=== PATIENT | male | born 1970 | race Caucasian/White ===

== ENCOUNTER 2021-02-15 18:09 | Inpatient (IN) ==
[2021-02-15] MEDS ORDERED: ACETAMINOPHEN 1,000 MG/100 ML VIAL IV STA (19:21)
--- NOTE | 2021-02-15 19:29 | Emergency Department Note ---
History of Present Illness General Chief complaint: Abdominal Pain Stated complaint: STOMACH ACHE, FEVER Time Seen by Provider: 02/15/21 19:09 Source: patient Mode of arrival: ambulatory Limitations: no limitations History of Present Illness Provider complaint: Abdominal pain, fever Onset (ago): day(s) 1 Location: abdomen Radiation: extremity Severity: moderate Pain Consistency: + constant Maximum Pain Intensity: 8 Current Pain Intensity: 8 Quality: + constant Relieved By: + none Associated symptoms: + fever/chills and + loss of appetite; no nausea/vomiting and no shortness of breath Treatments prior to arrival: none This is a 50-year-old male presents the emergency department due to concern for abdominal pain and fever. Patient states he woke up in the middle the night yes terday morning and came to the emergency room for evaluation. States the pain at that time felt in the lower part of his chest/upper abdomen. He states there is some radiation of the pain into the right shoulder blade. He states he has been having similar intermittent and milder episodes over the last 6 months. States he was discharged home after having labs and several imaging studies performed. States the pain was not gone at the time of discharge and has persisted throughout the day. States this afternoon he developed fevers and chills. Due to concern for other evolving etiology, they return the emergency room. No other treatment prior to arrival. On review of EMR at bedside with the patient and family, he underwent labs which were reassuring, chest x-ray, ultrasound of the gallbladder, and CT angiography of the chest. Ultrasound of the gallbladder did show biliary sludge and perhaps trace cholecystic fluid on the over read by radiology this morning. CTA of the chest was otherwise unremarkable. Patient denies any recent sick contacts. No other recent dietary changes. No trauma or change in activity. No concern for exposure to coronavirus. Pt seen during a time of high acuity and national emergency pandemic while wearing PPE. Home Medications Medication Instructions Recorded Confirmed Type omeprazole 40 mg PO DAILY 14 Days #14 cap 02/14/21 02/15/21 Rx famotidine 20 mg PO DAILY PRN 02/15/21 02/15/21 History ibuprofen 600 mg PO Q8H PRN 02/15/21 02/15/21 History amoxicillin-pot clavulanate 1 tab PO BID 7 Days #14 tab 02/17/21 Rx [Augmentin] hydrocodone-acetaminophen 1 tab PO Q4H PRN #30 tab 02/17/21 Rx Allergies Allergy/AdvReac Type Severity Reaction Status Date / Time No Known Allergies Allergy Unknown Verified 02/15/21 19:46 Past Med/Surg History Medical History No acute medical problems Surgical History History of appendectomy No pertinent past surgical history Family History Other Congestive heart failure (CHF) Social History Smoking Status: Never smoker Second Hand Exposure: No; Hx Alcohol Use: Yes Alcohol type: beer, wine and hard liquor Hx Substance Use: No Preferred Language: Kyrgyz Communication Ability: Effective Alum Mixer Required: No Beliefs That Will Affect Care: None Current Living Situation: Spouse Feels Safe at Home: Yes Review of Systems See HPI for pertinent positives & negatives. and A total of 10 systems reviewed and were otherwise negative Physical Exam Vital Signs Vital Signs - 24 hr 02/15/21 18:17 Temperature 39.2 C H Temperature Source Oral Pulse Rate 95 H Respiratory Rate 18 Respiratory Effort / Characteristics Non-Labored Spontaneous Respiratory Depth Normal Respiratory Pattern Regular Blood Pressure 163/92 H Blood Pressure Mean 115 Blood Pressure Position Sitting Pulse Oximetry 94 Oxygen Delivery Method Room Air Sepsis Recent Fever Within 48 Hours No Sepsis New/Unexplained Change in Mental Status N/A Sepsis Action Taken by Nursing No Action Required GENERAL: alert, well appearing, well nourished, no distress, non-toxic, BMI>35 EYE EXAM: normal conjunctiva, PERRL and EOM's grossly intact OROPHARYNX: no exudate, no erythema, lips, buccal mucosa, and tongue normal and mucous membranes are moist NECK: supple, no nuchal rigidity, no adenopathy, non-tender LUNGS: Clear to auscultation. Normal chest wall mechanics, no w/r/r HEART: no murmurs, S1 normal and S2 normal ABDOMEN: abdomen soft, tenderness in the epigastric and right upper quadrant regions, normo-active bowel sounds, no masses, no rebound or guarding. BACK: Back is symmetrical on inspection and there is no deformity, no midline tenderness, no CVA tenderness. SKIN: no rashes and no bruising UPPER EXTREMITIES: upper extremities are grossly normal. FROM, nml pulses b/l. LOWER EXTREMITIES: No pitting edema. FROM, nml pulses b/l. NEURO EXAM: Normal sensorium, cranial nerves II-XII grossly intact, normal speech, no gross weakness of arms, no gross weakness of legs. Gross sensation intact. Course Administered Medications Discontinued Medications Amoxicillin/Clavulanate Potassium (Amoxicillin/Clavulanate 875 Mg Tab) 1 tab PO BIDM HUSSEIN Stop: 02/27/21 08:29 Last Admin: 02/17/21 09:07 Dose: 1 tab Documented by: [id number] Bupivacaine HCl (Bupivacaine 0.5 % 5 Mg/1 Ml Mpf 30ml Vial) Confirm Administered Dose 30 ml .ROUTE .STK-MED ONE Stop: 02/16/21 12:58 Last Admin: 02/16/21 15:38 Dose: 18 ml Documented by: [id number] Sodium Chloride (Nss 1000ml) 1,000 mls @ 250 mls/hr IV .Q4H [facility] Stop: 03/17/21 19:29 Last Admin: 02/15/21 23:59 Dose: Not Given Documented by: [id number] Infusion: 02/15/21 23:13 Dose: 0 mls/hr Documented by: [id number] Admin: 02/15/21 19:43 Dose: 250 mls/hr Documented by: [id number] Acetaminophen (Ofirmev) 1,000 mg in 100 mls @ 400 mls/hr IV NOW STA Stop: 02/15/21 19:35 Last Infusion: 02/15/21 19:57 Dose: 400 mls/hr Documented by: [id number] Admin: 02/15/21 19:42 Dose: 400 mls/hr Documented by: [id number] Piperacillin Sod/Tazobactam Sod (Zosyn) 4.5 gm in 120 mls @ 240 mls/hr IV NOW ONE Stop: 02/15/21 21:34 Last Infusion: 02/15/21 21:44 Dose: 240 mls/hr Documented by: [id number] Admin: 02/15/21 21:14 Dose: 240 mls/hr Documented by: [id number] Piperacillin Sod/Tazobactam (Sod 4.5 gm/ Dextrose) 120 mls @ 30 mls/hr IV Q8H [facility]; Protocol Stop: 02/26/21 01:59 Last Infusion: 02/17/21 07:39 Dose: 0 mls/hr Documented by: [id number] Admin: 02/17/21 02:16 Dose: 30 mls/hr Documented by: [id number] Infusion: 02/16/21 22:52 Dose: 0 mls/hr Documented by: [id number] Admin: 02/16/21 18:35 Dose: 30 mls/hr Documented by: [id number] Infusion: 02/16/21 13:40 Dose: 30 mls/hr Documented by: [id number] Admin: 02/16/21 09:40 Dose: 30 mls/hr Documented by: [id number] Infusion: 02/16/21 06:43 Dose: 30 mls/hr Documented by: [id number] Admin: 02/16/21 02:43 Dose: 30 mls/hr Documented by: [id number] Lactated Ringer's (Lr) 1,000 mls @ 125 mls/hr IV .Q8H [facility] Stop: 03/17/21 23:43 Last Admin: 02/16/21 19:01 Dose: Not Given Documented by: [id number] Infusion: 02/16/21 19:01 Dose: 0 mls/hr Documented by: [id number] Admin: 02/16/21 08:46 Dose: 125 mls/hr Documented by: [id number] Infusion: 02/16/21 08:46 Dose: 125 mls/hr Documented by: [id number] Admin: 02/16/21 00:54 Dose: 125 mls/hr Documented by: [id number] Sodium Chloride (Nss 1000ml) 1,000 mls @ 50 mls/hr IV .Q20H [facility]US[facility]IN Stop: 03/18/21 16:57 Last Infusion: 02/17/21 05:42 Dose: 50 mls/hr Documented by: [id number] Admin: 02/17/21 03:47 Dose: 100 mls/hr Documented by: [id number] Infusion: 02/17/21 03:36 Dose: 100 mls/hr Documented by: [id number] Admin: 02/16/21 17:36 Dose: 100 mls/hr Documented by: [id number] Indomethacin (Indomethacin 50 Mg Supp) Confirm Administered Dose 100 mg [place] .STK- MED ONE Stop: 02/16/21 12:58 Last Admin: 02/16/21 14:26 Dose: 100 mg Documented by: [id number] Insulin Aspart (Insulin Aspart 100 Units/Ml 3 Ml Pen) 0 units SC ACHS [facility] Stop: 03/18/21 07:29 Last Admin: 02/17/21 09:08 Dose: Not Given Documented by: [id number] Admin: 02/16/21 21:17 Dose: 1 units Documented by: [id number] Cosigned by: [id number] Admin: 02/16/21 18:33 Dose: 2 units Documented by: [id number] Cosigned by: [id number] Admin: 02/16/21 17:14 Dose: Not Given Documented by: [id number] Admin: 02/16/21 08:44 Dose: Not Given Documented by: [id number] Miscellaneous ( Floseal Hemostatic Matrix 10ml) 10 ml TOP ONCE ONE Stop: 02/16/21 15:11 Last Admin: 02/16/21 15:37 Dose: 10 ml Documented by: [id number] Pantoprazole Sodium (Pantoprazole 40 Mg Tab) 40 mg PO DAILY [facility] Stop: 03/18/21 08:59 Last Admin: 02/17/21 09:08 Dose: 40 mg Documented by: [id number] Admin: 02/16/21 09:40 Dose: 40 mg Documented by: [id number] Medical Decision Making Differential Diagnosis Differential diagnosis: Etiologies such as viral syndrome, otitis, pharyngitis, pneumonia, influenza, meningitis, urinary tract infection, sepsis, bacteremia, as well as others were entertained. Medical Records Attestation: I reviewed the patient's medical records. Home Medications Current Medication List: was personally reviewed by me Laboratory Data Attestation: I reviewed the patient's lab results. Result diagrams: 02/17/21 05:43 02/17/21 05:43 Lab Results 02/15/21 02/15/21 02/15/21 Range/Units 19:38 19:38 19:38 WBC 16.26 H (4.8-10.8) K/uL RBC 5.61 (4.7-6.1) M/uL Hgb 17.3 (14.0-18.0) g/dL Hct 49.7 (42-52) % MCV 88.6 (80-100) fL MCH 30.8 (25-34) pg MCHC 34.8 (32-36) g/dL RDW Std Deviation 43.3 (36.4-46.3) fL RDW Coeff of Lisandro 13.3 (11.5-14.5) % Plt Count 193 (130-400) K/uL MPV 10.5 H (7.4-10.4) fL Immature Gran % (Auto) 0.4 % Neut % (Auto) 75.2 % Lymph % (Auto) 11.5 % Cassia % (Auto) 11.9 % Eos % (Auto) 0.9 % Baso % (Auto) 0.1 % Neut # (Auto) 12.22 H (1.4-6.5) K/uL Lymph # (Auto) 1.87 (1.2-3.4) K/uL Cassia # (Auto) 1.94 H (0.11-0.59) K/uL Eos # (Auto) 0.14 (0-0.5) K/uL Baso # (Auto) 0.02 (0-0.2) K/uL Immature Gran # (Auto) 0.07 H (0.00-0.02) K/uL Sodium 135 L (136-145) mmol/L Potassium 3.7 (3.5-5.1) mmol/L Chloride 99 (98-107) mmol/L Carbon Dioxide 32 (21-32) mmol/L Anion Gap 4.0 (3-11) BUN 11 (7-18) mg/dl Creatinine 1.02 (0.6-1.4) mg/dl Est Cr Clr Drug Dosing 119.4 ml/min Est GFR ( Amer) 98.2 ml/min Est GFR (Non-Af Amer) 84.7 ml/min BUN/Creatinine Ratio 10.7 (10-20) Glucose 149 H (70-99) mg/dl Calcium 8.5 (8.5-10.1) mg/dl Magnesium 1.9 (1.8-2.4) mg/dl Total Bilirubin 3.2 H D (0.2-1) mg/dl AST 16 (15-37) U/L ALT 28 (12-78) U/L Alkaline Phosphatase 60 (45-117) U/L Troponin I < 0.015 (0-0.045) ng/ml Total Protein 7.4 (6.4-8.2) gm/dl Albumin 3.5 (3.4-5.0) gm/dl Globulin 3.9 (2.5-4.0) gm/dl Albumin/Globulin Ratio 0.9 (0.9-2) Lipase 74 (73-393) U/L Procalcitonin 0.11 (0-0.5) ng/ml Lyme Disease IgG Ab Negative (Negative) Lyme Disease IgM Ab Negative (Negative) COVID-19 Eval Order SARS-CoV-2 (PCR) (Negative) 02/15/21 02/15/21 Range/Units 21:20 21:20 WBC (4.8-10.8) K/uL RBC (4.7-6.1) M/uL Hgb (14.0-18.0) g/dL Hct (42-52) % MCV (80-100) fL MCH (25-34) pg MCHC (32-36) g/dL RDW Std Deviation (36.4-46.3) fL RDW Coeff of Lisandro (11.5-14.5) % Plt Count (130-400) K/uL MPV (7.4-10.4) fL Immature Gran % (Auto) % Neut % (Auto) % Lymph % (Auto) % Cassia % (Auto) % Eos % (Auto) % Baso % (Auto) % Neut # (Auto) (1.4-6.5) K/uL Lymph # (Auto) (1.2-3.4) K/uL Cassia # (Auto) (0.11-0.59) K/uL Eos # (Auto) (0-0.5) K/uL Baso # (Auto) (0-0.2) K/uL Immature Gran # (Auto) (0.00-0.02) K/uL Sodium (136-145) mmol/L Potassium (3.5-5.1) mmol/L Chloride (98-107) mmol/L Carbon Dioxide (21-32) mmol/L Anion Gap (3-11) BUN (7-18) mg/dl Creatinine (0.6-1.4) mg/dl Est Cr Clr Drug Dosing ml/min Est GFR ( Amer) ml/min Est GFR (Non-Af Amer) ml/min BUN/Creatinine Ratio (10-20) Glucose (70-99) mg/dl Calcium (8.5-10.1) mg/dl Magnesium (1.8-2.4) mg/dl Total Bilirubin (0.2-1) mg/dl AST (15-37) U/L ALT (12-78) U/L Alkaline Phosphatase (45-117) U/L Troponin I (0-0.045) ng/ml Total Protein (6.4-8.2) gm/dl Albumin (3.4-5.0) gm/dl Globulin (2.5-4.0) gm/dl Albumin/Globulin Ratio (0.9-2) Lipase (73-393) U/L Procalcitonin (0-0.5) ng/ml Lyme Disease IgG Ab (Negative) Lyme Disease IgM Ab (Negative) COVID-19 Eval Order Covid19 at [facility] SARS-CoV-2 (PCR) NEGATIVE (Negative) ECG Data Attestation: I personally reviewed and interpreted this ECG as follows: Indication: + abdominal pain Rate (beats per minute): 51 Rhythm: + sinus bradycardia ECG Intervals/blocks: + Normal QRS and + Normal QT ECG New Era: + Normal ECG ST segments: + Normal ST segments MDM Narrative This is a 50-year-old male presents emergency department due to concern for worsening abdominal pain. Patient had been seen and evaluated last night and was discharged home. Over read on the ultrasound by our daytime radiologist suggest possible evolving cholecystitis. Given worsening pain and now accompa nying fever, I feel this is likely. Labs were collected, IV established and patient given medication for pain. Patient with a worsening leukocytosis noted. Given prior findings last night, I did contact general surgery. En Clifford PA-C came and evaluated the patient at bedside and discussed the case with Dr. Arenas. They will admit the patient and pursue additional evaluation. Patient was found to have an elevated bilirubin level although other LFTs are unremarkable. Etiology of this is unclear. Patient made aware of results, verbalized understanding was in agreement with plan. At this time I do not suspect bacteremia/sepsis or ascending cholangitis. No evidence of concurrent pancreatitis. An order was placed for continuous cardiac monitoring. The monitor shows a rate of _80 with normal sinus rhythm. Impression & Plan Abdominal pain, Cholecystitis Discharge Plan Visit Data Chief Complaint: Abdominal Pain Stated Complaint: STOMACH ACHE, FEVER ED Provider: Pheasant,Gillian S. Discharge Problem: Abdominal pain, Cholecystitis Patient Disposition: Admitted As Inpatient Discharge Instructions Interventions: ED Discharge Assessment Last Done: 02/15/21 23:17 Discharge Problem: Abdominal pain Qualifiers: Abdominal location: right upper quadrant Qualified Code(s): R10.11 - Right upper quadrant pain
[2021-02-15] MEDS: SODIUM CHLORIDE 0.9% 1000ML 1,000 ML IV SCH ×2 (19:43→23:59)
[2021-02-15 19:47] LABS: Basophils # (auto) 0.02 K/uL (0-0.2); Basophils % (auto) 0.1 %; Eosinophils # (auto) 0.14 K/uL (0-0.5); Eosinophils % (auto) 0.9 %; Hematocrit (blood only) 49.7 % (42-52); Hemoglobin 17.3 g/dL (14.0-18.0); Immature Granulocytes # (auto) 0.07 K/uL (0.00-0.02); Immature Granulocytes % (auto) 0.4 %; Lymphocytes # (auto) 1.87 K/uL (1.2-3.4); Lymphocytes % (auto) 11.5 %; Mean Corpuscular Hemoglobin 30.8 pg (25-34); Mean Corpuscular Hgb Conc 34.8 g/dL (32-36); Mean Corpuscular Volume 88.6 fL (80-100); Mean Platelet Volume 10.5 fL (7.4-10.4); Monocytes # (auto) 1.94 K/uL (0.11-0.59); Monocytes % (auto) 11.9 %; Neutrophils # (auto) 12.22 K/uL (1.4-6.5); Neutrophils % (auto) 75.2 %; Platelet Count 193 K/uL (130-400); RDW Coefficient of Variation 13.3 % (11.5-14.5); RDW Standard Deviation 43.3 fL (36.4-46.3); Red Blood Count 5.61 M/uL (4.7-6.1); White Blood Count 16.26 K/uL (4.8-10.8)
[2021-02-15 20:33] LABS: Alanine Aminotransferase 28 U/L (12-78); Albumin Globulin Ratio 0.9 (0.9-2); Albumin Level 3.5 gm/dl (3.4-5.0); Alkaline Phosphatase 60 U/L (45-117); Aspartate Aminotransferase 16 U/L (15-37); BUN Creatinine Ratio 10.7 (10-20); Bilirubin,Total 3.2 mg/dl (0.2-1); Blood Urea Nitrogen 11 mg/dl (7-18); Calcium 8.5 mg/dl (8.5-10.1); Carbon Dioxide 32 mmol/L (21-32); Chloride 99 mmol/L (98-107); Creatinine Clr Calc Pharmacy 119.4 ml/min; Est GFR (African American) 98.2 ml/min; Est GFR (Non-African American) 84.7 ml/min; Globulin 3.9 gm/dl (2.5-4.0); Glucose 149 mg/dl (70-99); Lipase 74 U/L (73-393); Magnesium 1.9 mg/dl (1.8-2.4); Potassium 3.7 mmol/L (3.5-5.1); Sodium 135 mmol/L (136-145); Total Protein 7.4 gm/dl (6.4-8.2); Troponin I < 0.015 ng/ml (0-0.045)
[2021-02-15 21:03] LABS: Procalcitonin 0.11 ng/ml (0-0.5)
[2021-02-15] MEDS ORDERED: PIPERACILL/TAZOBAC CONSULT ACTIVE PRN ×3 (21:05→23:44)
[2021-02-15] MEDS ORDERED: PIPERACILLIN/TAZOBACTAM 4.5 GM/120 ML BAG IV ONE ×2 (21:05→21:15)
[2021-02-15 21:09] LABS: Lyme Ab IgG w/WB Rflx Negative (Negative); Lyme Ab IgM w/WB Rflx Negative (Negative)
--- NOTE | 2021-02-15 21:37 | History & Physical Report ---
Date of Service February 15, 2021 Assessment & Plan (1) Cholecystitis: We will admit the patient to the hospital and proceed as follows: Analgesics will be provided Antiemetics will be provided We will administer antibiotics in the form of Zosyn. He has received his first dose in the emergency department We will keep the patient n.p.o. in anticipation of procedural intervention We will hydrate the patient with IV fluids We will repeat labs in the morning Due to his elevated bilirubin I feel a gastroenterology consultation is warranted. I have discussed the case via phone with Dr. Hilario Lane of [facility] gastroenterology and he feels patient may require an ERCP and he is tentatively planning on performing this procedure tomorrow GI evaluation and potential ERCP the patient will likely require cholecystectomy. Due to the patient's elevated blood pressure as well as his hyperglycemia I have requested a medical evaluation with the [facility] physician group hospitalist and have discussed the case with the service outlining the above plan and the need for medical evaluation. They have agreed to see the patient in consultation. A Covid test has been performed in the emergency department is pending. We will follow for the results of this. Use SCDs for DVT prevention. We will avoid chemical means for the present time as he will likely require procedural intervention Patient will be a full code Dr. Arenas-patient was seen in his room and agree with above plan. Patient may undergo ERCP after GI evaluation and will also require laparoscopic cholecystectomy at some point in the near future He is stable at the present time feeling somewhat better and afebrile History of Present Illness Chief Complaint: Abdominal pain Primary Care Provider: Raul Cortez MD This is a 50-year-old male who presented to [facility] emergency department yesterday evening secondary abdominal pain. It is n oteworthy to mention that the patient notes that he has been having some epigastric and right upper quadrant abdominal pain intermittently for the past several weeks. He says that the pain typically occurs after midnight and is unrelated to meals. As the pain usually self resolves he did not seek any medical attention for this problem until yesterday when the pain became more severe so he presented to the emergency department. In the emergency department yesterday the patient had a CT scan of the chest that showed no acute intracranial intrathoracic abnormality specifically no pulmonary emboli. He had a chest x-ray that showed no evidence of pneumonia or CHF. He also had a gallbladder ultrasound that showed a distended sludge-filled gallbladder with trace pericholecystic fluid but no gallstones were noted. Labs during this visit showed a white blood cell count 11.6. His hemoglobin, hematocrit, and platelet count were noted to be within normal range. Chemistry profile did show sodium, potassium, and creatinine were normal. There were no elevation of his bilirubin or LFTs. His lipase was noted to be normal and cardiac enzymes were checked and were negative. Patient also had 2 EKGs that showed sinus rhythm without any changes indicative of ischemia. As it was felt that the patient was clinically stable he was discharged home. Patient represented to [facility] emergency department this evening as he has had continued symptoms similar to what he has noted above. Again he notes that he has had epigastric and right upper quadrant pain with radiation to the right shoulder. He says the pain is unrelated to meals and he denies any palliative or provocative factors. He has had associated nausea vomiting and he has been febrile. He denies any shakes or chills. He also denies any diarrhea. Patient notes that he did have 1 prior abdominal surgery which was an appendectomy. No additional imaging was performed in the emergency department this evening however the patient did have repeat labs. CBC revealed his white blood cell count had risen to 16.2. His hemoglobin and hematocrit remained normal as was his platelet count. Chemistry profile showed his sodium was now 135 with a potassium of 3.7. His BUN and creatinine were both within the normal range. Patient's total bilirubin had risen from 1.0 to 3.2. His transaminases and alkaline phosphatase were not elevated. Troponin was checked again and was not elevated and lipase was noted to be normal. An EKG was repeated which showed sinus rhythm and no changes indicative of ischemia were noted. A Covid test has been ordered and is pending. It is noteworthy to mention that during both visits to the emergency department the patient was noted to have elevated blood glucose levels. During his first ED visit was 182 and at today's visit it was 149. Patient says that he is not a known diabetic but when questioned further he did say his family doctor had recommended he start taking an oral diabetic medication as he has numerous family members that are diabetic. Patient has not been compliant with this medication. In addition the patient was noted to have an elevated blood pressure. He notes that he does not take any medication for this. I did question the patient on his activities of daily living and he drives a truck for living. He does admit that he is not that active but on the weekends he does do some yard and housework. He feels as though he can walk up at least 2 flights of steps and walk a mile on a flat surface without chest pain or shortness of breath. Not have any known cardiac history and he does not smoke. He does note that with his parents suffered from heart disease. At the time of my interview the patient is resting comfortably in bed. His pain was well controlled and he was in no distress. Allergies Allergy/AdvReac Type Severity Reaction Status Date / Time No Known Allergies Allergy Unknown Verified 02/15/21 19:46 Home Medications Medication Instructions Recorded Confirmed Type omeprazole 40 mg PO DAILY 14 Days #14 cap 02/14/21 02/15/21 Rx famotidine 20 mg PO DAILY PRN 02/15/21 02/15/21 History ibuprofen 600 mg PO Q8H PRN 02/15/21 02/15/21 History Past Med/Surg History Medical History (Updated 02/15/21 @ 22:19 by Destiny Hancock MD) No acute medical problems Surgical History (Updated 02/15/21 @ 21:50 by Nacho Atwood PA-C) History of appendectomy No pertinent past surgical history Family History (Updated 02/15/21 @ 21:50 by Nacho Atwood PA-C) Other Congestive heart failure (CHF) Social History Smoking Status: Never smoker Second Hand Exposure: No; Do You Dip or Chew Tobacco: Yes; Tobacco Cessation Education Requested by Patient: No Hx Alcohol Use: Yes Alcohol type: beer, wine and hard liquor Hx Substance Use: No Preferred Language: Canadian Communication Ability: Effective Industrial Electrical Engineer Required: No Beliefs That Will Affect Care: None Current Living Situation: Spouse Other Information That Helps Us Care for You: No Feels Safe at Home: Yes Safety Concerns: Feels Safe At This Time Assistive Devices: Glasses Review of Systems Constitutional: + fever; no chills Eyes: no diplopia Ear, Nose, Mouth, Throat: no ear pain Respiratory: no cough and no dyspnea Cardiovascular: no chest pain, no chest pain with activity and no dyspnea Gastrointestinal: + abdominal pain, + nausea and + vomiting; no diarrhea/loose stools Genitourinary: no dysuria Musculoskeletal: no back pain Integumentary: no rash Neurologic: no localized weakness Physical Exam Constitutional: well developed and well nourished; no acute distress Eyes: + anicteric sclerae; no conjunctival abnormality ENMT: Ears: no hearing impairment Neck: trachea midline Respiratory: normal respiratory effort, lungs clear to auscultation Cardiovascular: Rate/Rhythm: regular rate and regular rhythm Gastrointestinal (Abdomen): Abdomen is rotund but soft. Patient had a well-healed incision in the right lower quadrant from previous appendectomy. There is no rebound tenderness or guarding the patient did have pain with palpation in the epigastric area and to a greater extent the right upper quadrant with a positive Martinez sign. Musculoskeletal: No calf tenderness. No lower extremity edema. Skin: no rashes, warm and dry no jaundice Neurologic: moves all extremities Psychiatric: A+Ox3, euthymic affect Results & Data Results & Data ([facility]) Vital Signs (Past 12 Hours) Vital Signs Temp Pulse Resp BP Pulse Ox 02/15/21 20:34 38.5 C H 02/15/21 20:30 83 10 L 154/85 H 94 02/15/21 20:27 38.5 C H 02/15/21 20:20 85 94 02/15/21 20:10 88 94 02/15/21 20:00 86 147/86 H 95 02/15/21 19:50 90 11 L 96 02/15/21 19:44 80 14 95 02/15/21 19:42 81 20 149/91 H 93 02/15/21 19:39 95 02/15/21 19:38 89 L 02/15/21 18:17 39.2 C H 95 H 18 163/92 H 94 Code Status & VTE Plan VTE Prophylaxis Plan VTE Prophylaxis will be ordered: Yes PG Care Time/CCT Total # of Minutes Spent Total Time Spent with Patient: Total time spent is greater than 50% in coordination of care (as documented) at patient's floor/unit and/or counseling patient: Coding Level of Care Code 96311 Initial Inpt Care Lvl 3 Diagnoses Cholecystitis K81.9
--- NOTE | 2021-02-15 21:59 | Hospitalist Consultation ---
Date of Consultation February 15, 2021 Assessment & Plan (1) Cholecystitis: Mr. Liao is a 50 yo gentleman who is admitted to the general surgery service for definitive management of acute calculous cholecystitis. - patient NPO and on mIVF - on appropriate pre-procedure antibiotic prophylaxis (2) Pre-diabetes: - history of - BG checks ACHS - check HbA1c in am - I did place sliding scale insulin orders for widely deranged BG (3) Chewing tobacco use: - chronic - recommend cessation (4) RBBB (right bundle branch block): - incomplete RBBB noted on EKG - recommend outpatient cardiology follow-up with Dr. Howard Supervising Physician Co-Signing Physician Notes Attending addendum: I have physically seen this patient, have supervised the medical residents activities, and agree with the H&P unless as otherwise noted. Assessment and Plan: Acute calculous cholecystitis- Admitted to surgical service for surgery in a.m. N.p.o. IV fluids as noted Preprocedure IV antibiotics as noted Prediabetes- Placed on Accu-Cheks before meals and at bedtime with NovoLog coverage per scale Check hemoglobin A1c Incomplete right bundle branch block- Outpatient follow-up Tobacco use disorder- Cessation counseling Nicotine patch if desired GERD- Hold oral omeprazole and famotidine. Placed on famotidine 20 mg IV every 12 hours Remaining orders and notations as noted History of Present Illness History of Present Illness Mr. Liao is a 50 yo gentleman who was admitted earlier this evening to the general surgery service for definitive management of what is thought to be developing acute calculous cholecystitis. Medicine team was asked to be a dynamics ax consultant. Patient has a history of pre-diabetes, although he is unable to say what his last hbA1c value was. He was prescribed metformin in August 2020 by his PCP (Noah Cortez [facility]) but he never started the medication. Instead he made dietary modifications (smaller portion size, fewer carbohydrates) and lost 45 pounds since August. He has a follow-up with Dr. Cortez scheduled for February 24. He is not on a beta sarita, blood thinner or a daily baby aspirin. No chronic steroid use. Does not get chest pain after climbing a flight of stairs. He has had his appendix excised as well as knee surgery - he denies any trouble tolerating anesthesia with these previous procedures. Non-smoker, although he does use chewing tobacco. Etoh consumption: 4 drinks per week. In the ED, he was given zosyn, made NPO and started on IVF. Allergies Allergy/AdvReac Type Severity Reaction Status Date / Time No Known Allergies Allergy Unknown Verified 02/15/21 19:46 Home Medications Medication Instructions Recorded Confirmed Type omeprazole 40 mg PO DAILY 14 Days #14 cap 02/14/21 02/15/21 Rx famotidine 20 mg PO DAILY PRN 02/15/21 02/15/21 History ibuprofen 600 mg PO Q8H PRN 02/15/21 02/15/21 History Patient History Medical History No acute medical problems Surgical History History of appendectomy No pertinent past surgical history Family History Other Congestive heart failure (CHF) Social History Smoking Status: Never smoker Second Hand Exposure: No; Do You Dip or Chew Tobacco: Yes; Tobacco Cessation Education Requested by Patient: No Hx Alcohol Use: Yes Alcohol type: beer, wine and hard liquor Hx Substance Use: No Preferred Language: [place] Communication Ability: Effective Director Trial Required: No Beliefs That Will Affect Care: None Current Living Situation: Spouse Other Information That Helps Us Care for You: No Feels Safe at Home: Yes Safety Concerns: Feels Safe At This Time Assistive Devices: Oxygen - Continuous Review of Systems Review of Systems: All systems reviewed & are unremarkable except as noted in HPI & below Physical Exam Constitutional: WD/WN, vitals as above + obese and cooperative; no acute distress Eyes: + anicteric sclerae ENMT: external ear and nose normal, oropharynx normal Neck: normal visual inspection and trachea midline Respiratory: normal respiratory effort, lungs clear to auscultation Cardiovascular: RRR, no murmur, no edema Heart Sounds: normal S1 and normal S2 Gastrointestinal (Abdomen): Inspection/Auscultation: normal bowel sounds Percussion/Palpation: + abdomen tender (RUQ) and abdomen soft; no guarding Skin: no rashes, warm and dry Neurologic: moves all extremities Psychiatric: A+Ox3, euthymic affect Results & Data Results & Data ([facility]) Vital Signs (Past 12 Hours) Vital Signs Temp Pulse Resp BP Pulse Ox 02/15/21 20:34 38.5 C H 02/15/21 20:30 83 10 L 154/85 H 94 02/15/21 20:27 38.5 C H 02/15/21 20:20 85 94 02/15/21 20:10 88 94 02/15/21 20:00 86 147/86 H 95 02/15/21 19:50 90 11 L 96 02/15/21 19:44 80 14 95 02/15/21 19:42 81 20 149/91 H 93 02/15/21 19:39 95 02/15/21 19:38 89 L 02/15/21 18:17 39.2 C H 95 H 18 163/92 H 94 Resident Activity Tracking Resident Involvement: Resident Care Provided Care Provided: Adult Hospital Medicine
[2021-02-15] MEDS ORDERED: GLUCAGON FOR INJ 1 MG VIAL SQ PRN (22:00)
[2021-02-15] MEDS ORDERED: CARBOHYDRATES FOR HYPOGLYCEMIA PO PRN (22:00)
[2021-02-15] MEDS ORDERED: GLUCOSE 10 TABS/TUBE PO PRN (22:00)
[2021-02-15] MEDS ORDERED: DEXTROSE 50% 50 ML SYRINGE IV PRN (22:00)
[2021-02-15] MEDS ORDERED: GLUCOSE 40% GEL 15 GM TUBE PO PRN (22:00)
[2021-02-15] MEDS ORDERED: MoRPHine SULFATE 4 MG/ML 1 ML CARP\\VIAL IV PRN (23:44)
[2021-02-15] MEDS ORDERED: ONDANSETRON INJ 2 MG/ML 2 ML VIAL IV PRN (23:44)
[2021-02-15] MEDS ORDERED: FAMOTIDINE 20 MG TAB PO PRN (23:44)
[2021-02-15] MEDS ORDERED: ACETAMINOPHEN 1,000 MG/100 ML VIAL IV PRN (23:44)
[2021-02-16] MEDS: LACTATED RINGER'S 1,000 ML IV SCH ×3 (00:54→19:01)
[2021-02-16] MEDS: PIPERACILLIN/TAZOBACTAM 4.5 GM in DEXTROSE 5% 100 ML IV SCH ×3 (02:43→18:35)
[2021-02-16 06:00] LABS: Basophils # (auto) 0.03 K/uL (0-0.2); Basophils % (auto) 0.2 %; Eosinophils # (auto) 0.19 K/uL (0-0.5); Eosinophils % (auto) 1.3 %; Hematocrit (blood only) 44.7 % (42-52); Hemoglobin 15.5 g/dL (14.0-18.0); Immature Granulocytes # (auto) 0.04 K/uL (0.00-0.02); Immature Granulocytes % (auto) 0.3 %; Lymphocytes # (auto) 2.13 K/uL (1.2-3.4); Lymphocytes % (auto) 14.5 %; Mean Corpuscular Hemoglobin 31.4 pg (25-34); Mean Corpuscular Volume 90.7 fL (80-100); Mean Platelet Volume 10.2 fL (7.4-10.4); Monocytes # (auto) 1.86 K/uL (0.11-0.59); Monocytes % (auto) 12.6 %; Neutrophils # (auto) 10.47 K/uL (1.4-6.5); Neutrophils % (auto) 71.1 %; Platelet Count 199 K/uL (130-400); RDW Coefficient of Variation 13.5 % (11.5-14.5); RDW Standard Deviation 44.7 fL (36.4-46.3); Red Blood Count 4.93 M/uL (4.7-6.1); White Blood Count 14.72 K/uL (4.8-10.8)
[2021-02-16 06:09] LABS: Mean Corpuscular Hgb Conc 34.7 g/dL (32-36)
[2021-02-16 06:22] LABS: Estimated Average Glucose 128 mg/dl; Hemoglobin A1C 6.1 % (4.5-5.6)
[2021-02-16 06:32] LABS: Albumin Globulin Ratio 0.9 (0.9-2); Bilirubin,Total 3.8 mg/dl (0.2-1); Calcium 7.7 mg/dl (8.5-10.1); Creatinine Clr Calc Pharmacy 154.2 ml/min; Est GFR (African American) 120.5 ml/min; Globulin 3.2 gm/dl (2.5-4.0); Potassium 3.7 mmol/L (3.5-5.1); Total Protein 6.2 gm/dl (6.4-8.2)
--- NOTE | 2021-02-16 08:35 | Hospitalist Progress Note ---
Date of Service February 16, 2021 Assessment & Plan (1) Cholecystitis: Mr. Liao is a 50 yo gentleman who is admitted to the general surgery service for definitive management of acute calculous cholecystitis. Temp 39.2C last evening --> Blood cultures pending IVF with LR @ 125cc/hr Zosyn for Abx --> WBC 14.7k from 16k on admission TB up to 3.8, other LFTs wnl Remains NPO Pre-op CXR without acute process. EKG with sinus ebony. Trop negative x 3 Plans for ERCP and Lap Mesha today with Dr. Underwood and Dr. Arenas Labs in AM (2) Pre-diabetes: A1c 6.1 -- counseling and f/u with PCP Sliding scale in place BSgs acceptable continue to monitor (3) Chewing tobacco use: Smoking cessation On omeprazole DIRECTOR REGULATORY COMPLIANCE --> placed on protonix 40mg daily while inpatient (4) RBBB (right bundle branch block): trop x 3 negative. Repeat EKG NSR, incomplete RBBB noted on EKG. F/u outpt with Dr Howard (5) DVT prophylaxis: SCDs for now, chemoproph per primary following surgery Of note, GB US noted hepatic steatosis with 2 hypoechoic foci within the L hepatic lobe, largest measuring over 2cm -- could represent areas of fatty sp aring vs indeterminate liver lesions. Thank you for allowing hospitalist group to participate in the care of Mr. Liao. Hospitalist group will follow along. Admission and Anticipated Discharge Date Admission Date: February 15, 2021 Subjective Patient evaluated this morning. Pain controlled, and tolerable. Increased pain when moving around in bed/sitting up or coughing. Active bowel sounds but not passing gas or BM. PBJ sandwich only thing he has had since Sunday. No nausea or vomiting since that time as well. Shortness of breath when coughing secondary to pain and is on ROOM AIR. Slight fever last night but nothing since that time. His appendix ruptured approximately 15 years ago and he did end up with a drain at that time and is anticipating the same. Questions/concerns addressed at this time. Review of Systems Review of Systems: All systems reviewed & are unremarkable except as noted in HPI & below Physical Exam Constitutional: WD/WN, vitals as above + obese, cooperative and comfortable (laying in bed); no acute distress Eyes: + anicteric sclerae ENMT: external ear and nose normal, oropharynx normal Neck: normal visual inspection and trachea midline Respiratory: normal respiratory effort, lungs clear to auscultation Cardiovascular: RRR, no murmur, no edema Heart Sounds: normal S1 and normal S2 Gastrointestinal (Abdomen): Inspection/Auscultation: abdomen normal to inspection and normal bowel sounds Percussion/Palpation: + abdomen tender (RUQ) and abdomen soft; no guarding Musculoskeletal: no cyanosis or clubbing, extremities motor strength 5/5 Skin: no rashes, warm and dry Neurologic: moves all extremities Psychiatric: A+Ox3, euthymic affect Genitourinary: NO ABRAMS Results & Data Results & Data ([facility]) Vital Signs (Past 12 Hours) Vital Signs Temp Pulse Pulse Pulse Resp BP BP 02/16/21 06:36 36.7 C 68 20 133/78 02/16/21 04:04 71 150/94 H 02/15/21 23:30 37.4 C 69 16 156/101 H 02/15/21 23:00 73 15 150/82 H 02/15/21 22:50 75 16 02/15/21 22:40 78 16 02/15/21 22:30 73 7 L 150/86 H 02/15/21 22:20 73 17 02/15/21 22:10 75 13 02/15/21 22:00 70 21 146/82 H 02/15/21 21:50 78 34 H 02/15/21 21:40 77 18 02/15/21 21:30 76 6 L 137/76 02/15/21 21:20 85 12 02/15/21 21:10 78 02/15/21 21:00 75 13 141/75 H 02/15/21 20:50 80 18 02/15/21 20:40 82 Pulse Ox 02/16/21 06:36 94 02/16/21 04:04 02/15/21 23:30 93 02/15/21 23:00 96 02/15/21 22:50 96 02/15/21 22:40 96 02/15/21 22:30 96 02/15/21 22:20 94 02/15/21 22:10 97 02/15/21 22:00 96 02/15/21 21:50 95 02/15/21 21:40 96 02/15/21 21:30 94 02/15/21 21:20 95 02/15/21 21:10 94 02/15/21 21:00 94 02/15/21 20:50 93 02/15/21 20:40 95 Laboratory Results 02/16/21 02/16/21 02/16/21 Range/Units 05:45 05:45 05:45 WBC 14.72 H (4.8-10.8) K/uL RBC 4.93 (4.7-6.1) M/uL Hgb 15.5 (14.0-18.0) g/dL Hct 44.7 (42-52) % MCV 90.7 (80-100) fL MCH 31.4 (25-34) pg MCHC 34.7 (32-36) g/dL RDW Std Deviation 44.7 (36.4-46.3) fL RDW Coeff of Lisandro 13.5 (11.5-14.5) % Plt Count 199 (130-400) K/uL MPV 10.2 (7.4-10.4) fL Immature Gran % (Auto) 0.3 % Neut % (Auto) 71.1 % Lymph % (Auto) 14.5 % Baxter % (Auto) 12.6 % Eos % (Auto) 1.3 % Baso % (Auto) 0.2 % Neut # (Auto) 10.47 H (1.4-6.5) K/uL Lymph # (Auto) 2.13 (1.2-3.4) K/uL Baxter # (Auto) 1.86 H (0.11-0.59) K/uL Eos # (Auto) 0.19 (0-0.5) K/uL Baso # (Auto) 0.03 (0-0.2) K/uL Immature Gran # (Auto) 0.04 H (0.00-0.02) K/uL Sodium 135 L (136-145) mmol/L Potassium 3.7 (3.5-5.1) mmol/L Chloride 102 (98-107) mmol/L Carbon Dioxide 31 (21-32) mmol/L Anion Gap 2.0 L (3-11) BUN 9 (7-18) mg/dl Creatinine 0.79 (0.6-1.4) mg/dl Est Cr Clr Drug Dosing 154.2 ml/min Est GFR ( Amer) 120.5 ml/min Est GFR (Non-Af Amer) 104.0 ml/min BUN/Creatinine Ratio 12.0 (10-20) Glucose 145 H (70-99) mg/dl POC Glucose (70-99) mg/dl Estimat Average Glucose 128 mg/dl Hemoglobin A1c 6.1 H (4.5-5.6) % Calcium 7.7 L (8.5-10.1) mg/dl Magnesium (1.8-2.4) mg/dl Total Bilirubin 3.8 H (0.2-1) mg/dl AST 16 (15-37) U/L ALT 22 (12-78) U/L Alkaline Phosphatase 49 (45-117) U/L Troponin I (0-0.045) ng/ml Total Protein 6.2 L (6.4-8.2) gm/dl Albumin 3.0 L (3.4-5.0) gm/dl Globulin 3.2 (2.5-4.0) gm/dl Albumin/Globulin Ratio 0.9 (0.9-2) Lipase (73-393) U/L Procalcitonin (0-0.5) ng/ml Specimen Hemolysis Lyme Disease IgG Ab (Negative) Lyme Disease IgM Ab (Negative) COVID-19 Eval Order SARS-CoV-2 (PCR) (Negative) 02/16/21 02/15/21 02/15/21 Range/Units 05:37 23:49 21:20 WBC (4.8-10.8) K/uL RBC (4.7-6.1) M/uL Hgb (14.0-18.0) g/dL Hct (42-52) % MCV (80-100) fL MCH (25-34) pg MCHC (32-36) g/dL RDW Std Deviation (36.4-46.3) fL RDW Coeff of Lisandro (11.5-14.5) % Plt Count (130-400) K/uL MPV (7.4-10.4) fL Immature Gran % (Auto) % Neut % (Auto) % Lymph % (Auto) % Baxter % (Auto) % Eos % (Auto) % Baso % (Auto) % Neut # (Auto) (1.4-6.5) K/uL Lymph # (Auto) (1.2-3.4) K/uL Baxter # (Auto) (0.11-0.59) K/uL Eos # (Auto) (0-0.5) K/uL Baso # (Auto) (0-0.2) K/uL Immature Gran # (Auto) (0.00-0.02) K/uL Sodium (136-145) mmol/L Potassium (3.5-5.1) mmol/L Chloride (98-107) mmol/L Carbon Dioxide (21-32) mmol/L Anion Gap (3-11) BUN (7-18) mg/dl Creatinine (0.6-1.4) mg/dl Est Cr Clr Drug Dosing ml/min Est GFR ( Amer) ml/min Est GFR (Non-Af Amer) ml/min BUN/Creatinine Ratio (10-20) Glucose (70-99) mg/dl POC Glucose 156 H 135 H (70-99) mg/dl Estimat Average Glucose mg/dl Hemoglobin A1c (4.5-5.6) % Calcium (8.5-10.1) mg/dl Magnesium (1.8-2.4) mg/dl Total Bilirubin (0.2-1) mg/dl AST (15-37) U/L ALT (12-78) U/L Alkaline Phosphatase (45-117) U/L Troponin I (0-0.045) ng/ml Total Protein (6.4-8.2) gm/dl Albumin (3.4-5.0) gm/dl Globulin (2.5-4.0) gm/dl Albumin/Globulin Ratio (0.9-2) Lipase (73-393) U/L Procalcitonin (0-0.5) ng/ml Specimen Hemolysis Lyme Disease IgG Ab (Negative) Lyme Disease IgM Ab (Negative) COVID-19 Eval Order SARS-CoV-2 (PCR) NEGATIVE (Negative) 02/15/21 02/15/21 02/15/21 Range/Units 21:20 19:38 19:38 WBC (4.8-10.8) K/uL RBC (4.7-6.1) M/uL Hgb (14.0-18.0) g/dL Hct (42-52) % MCV (80-100) fL MCH (25-34) pg MCHC (32-36) g/dL RDW Std Deviation (36.4-46.3) fL RDW Coeff of Lisandro (11.5-14.5) % Plt Count (130-400) K/uL MPV (7.4-10.4) fL Immature Gran % (Auto) % Neut % (Auto) % Lymph % (Auto) % Baxter % (Auto) % Eos % (Auto) % Baso % (Auto) % Neut # (Auto) (1.4-6.5) K/uL Lymph # (Auto) (1.2-3.4) K/uL Baxter # (Auto) (0.11-0.59) K/uL Eos # (Auto) (0-0.5) K/uL Baso # (Auto) (0-0.2) K/uL Immature Gran # (Auto) (0.00-0.02) K/uL Sodium 135 L (136-145) mmol/L Potassium 3.7 (3.5-5.1) mmol/L Chloride 99 (98-107) mmol/L Carbon Dioxide 32 (21-32) mmol/L Anion Gap 4.0 (3-11) BUN 11 (7-18) mg/dl Creatinine 1.02 (0.6-1.4) mg/dl Est Cr Clr Drug Dosing 119.4 ml/min Est GFR ( Amer) 98.2 ml/min Est GFR (Non-Af Amer) 84.7 ml/min BUN/Creatinine Ratio 10.7 (10-20) Glucose 149 H (70-99) mg/dl POC Glucose (70-99) mg/dl Estimat Average Glucose mg/dl Hemoglobin A1c (4.5-5.6) % Calcium 8.5 (8.5-10.1) mg/dl Magnesium 1.9 (1.8-2.4) mg/dl Total Bilirubin 3.2 H D (0.2-1) mg/dl AST 16 (15-37) U/L ALT 28 (12-78) U/L Alkaline Phosphatase 60 (45-117) U/L Troponin I < 0.015 (0-0.045) ng/ml Total Protein 7.4 (6.4-8.2) gm/dl Albumin 3.5 (3.4-5.0) gm/dl Globulin 3.9 (2.5-4.0) gm/dl Albumin/Globulin Ratio 0.9 (0.9-2) Lipase 74 (73-393) U/L Procalcitonin 0.11 (0-0.5) ng/ml Specimen Hemolysis Lyme Disease IgG Ab Negative (Negative) Lyme Disease IgM Ab Negative (Negative) COVID-19 Eval Order Covid19 at [facility] SARS-CoV-2 (PCR) (Negative) 02/15/21 Range/Units 19:38 WBC 16.26 H (4.8-10.8) K/uL RBC 5.61 (4.7-6.1) M/uL Hgb 17.3 (14.0-18.0) g/dL Hct 49.7 (42-52) % MCV 88.6 (80-100) fL MCH 30.8 (25-34) pg MCHC 34.8 (32-36) g/dL RDW Std Deviation 43.3 (36.4-46.3) fL RDW Coeff of Lisandro 13.3 (11.5-14.5) % Plt Count 193 (130-400) K/uL MPV 10.5 H (7.4-10.4) fL Immature Gran % (Auto) 0.4 % Neut % (Auto) 75.2 % Lymph % (Auto) 11.5 % Baxter % (Auto) 11.9 % Eos % (Auto) 0.9 % Baso % (Auto) 0.1 % Neut # (Auto) 12.22 H (1.4-6.5) K/uL Lymph # (Auto) 1.87 (1.2-3.4) K/uL Baxter # (Auto) 1.94 H (0.11-0.59) K/uL Eos # (Auto) 0.14 (0-0.5) K/uL Baso # (Auto) 0.02 (0-0.2) K/uL Immature Gran # (Auto) 0.07 H (0.00-0.02) K/uL Sodium (136-145) mmol/L Potassium (3.5-5.1) mmol/L Chloride (98-107) mmol/L Carbon Dioxide (21-32) mmol/L Anion Gap (3-11) BUN (7-18) mg/dl Creatinine (0.6-1.4) mg/dl Est Cr Clr Drug Dosing ml/min Est GFR ( Amer) ml/min Est GFR (Non-Af Amer) ml/min BUN/Creatinine Ratio (10-20) Glucose (70-99) mg/dl POC Glucose (70-99) mg/dl Estimat Average Glucose mg/dl Hemoglobin A1c (4.5-5.6) % Calcium (8.5-10.1) mg/dl Magnesium (1.8-2.4) mg/dl Total Bilirubin (0.2-1) mg/dl AST (15-37) U/L ALT (12-78) U/L Alkaline Phosphatase (45-117) U/L Troponin I (0-0.045) ng/ml Total Protein (6.4-8.2) gm/dl Albumin (3.4-5.0) gm/dl Globulin (2.5-4.0) gm/dl Albumin/Globulin Ratio (0.9-2) Lipase (73-393) U/L Procalcitonin (0-0.5) ng/ml Specimen Hemolysis Lyme Disease IgG Ab (Negative) Lyme Disease IgM Ab (Negative) COVID-19 Eval Order SARS-CoV-2 (PCR) (Negative) PG Care Time/CCT Total # of Minutes Spent Total Time Spent with Patient: Total time spent is greater than 50% in coordination of care (as documented) at patient's floor/unit and/or counseling patient: Coding Level of Care Code 00224 Subseq Hosp Care Lvl 2 Diagnoses Cholecystitis K81.9 Pre-diabetes R73.03 Chewing tobacco use Z72.0 RBBB (right bundle branch block) I45.10 DVT prophylaxis Z29.9
[2021-02-16] MEDS: INSULIN ASPART 100 UNITS/ML 3 ML PEN SC SCH ×4 (08:44→21:17)
[2021-02-16] MEDS: PANTOprazole 40 MG TAB PO SCH (09:40)
--- NOTE | 2021-02-16 10:28 | Gastrointestinal Consultation ---
Date of Consultation February 16, 2021 Assessment & Plan (1) Cholecystitis: 50 year old male with abd pain, nausea, vomiting imaging concerning for cholecystics, GI asked to evaluate for pre-operative EUS/ERCP giving elevated Tbili and sludge filled GB . Will arrange combo ERCP/CCY with GI availability starting at 1 Continue ABX Continue other supportive measures as doing Supervising Physician Co-Signing Physician Notes I performed a history and physical examination of the patient today, including specifically on physical exam - soft abdomen. I have discussed the patient's management with the advanced practitioner. Please refer to the nurse practitioner's note for the documented findings and plan of care. EUS/ERCP today History of Present Illness Reason for Consultation: pre op ERCP Requesting Physician: Dagoberto Attending Physician: Rodrigo Arenas MD, [facility] History of Present Illness 50 year old male admitted through the ED to surgery service for abdominal pain, acute calculous cholecystitis. GI asked to arrange pre-operative EUS/ERCP given rising Tbili. Pt was seen and evaluated, chart reviewed. Notes upper abd pain prompting ED evaluation x 2. Notes pain started over the weekend, severe, associated with nausea,vomiting. Since admission, pain is more tolerable. No emesis. No BM but passing gas. ABDUS 2020: Limited exam secondary to patient body habitus.. Distended sludge-fi lled gallbladder with trace pericholecystic fluid. No shadowing cholelithiasis identified. Hepatic steatosis. There are 2 hypoechoic foci within the left hepatic lobe, largest of which measures over 2 cm. These foci may represent areas of fatty sparing versus indeterminate liver lesions. Findings could be correlated with any prior imaging. No biliary ductal dilation. Allergies Allergy/AdvReac Type Severity Reaction Status Date / Time No Known Allergies Allergy Unknown Verified 02/15/21 19:46 Home Medications Medication Instructions Recorded Confirmed Type omeprazole 40 mg PO DAILY 14 Days #14 cap 02/14/21 02/15/21 Rx famotidine 20 mg PO DAILY PRN 02/15/21 02/15/21 History ibuprofen 600 mg PO Q8H PRN 02/15/21 02/15/21 History Patient History Medical History No acute medical problems Surgical History History of appendectomy No pertinent past surgical history Family History Other Congestive heart failure (CHF) Social History Smoking Status: Never smoker Second Hand Exposure: No; Do You Dip or Chew Tobacco: Yes; Tobacco Cessation Education Requested by Patient: No Hx Alcohol Use: Yes Alcohol type: beer, wine and hard liquor Hx Substance Use: No Preferred Language: Italian Communication Ability: Effective 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 Beliefs That Will Affect Care: None Current Living Situation: Spouse Other Information That Helps Us Care for You: No Feels Safe at Home: Yes Safety Concerns: Feels Safe At This Time Assistive Devices: Oxygen - Continuous Review of Systems Review of Systems: All systems reviewed & are unremarkable except as noted in HPI & below Physical Exam Constitutional: WD/WN, vitals as above no acute distress and not ill appearing Respiratory: normal respiratory effort, lungs clear to auscultation Cardiovascular: RRR, no murmur, no edema Gastrointestinal (Abdomen): Inspection/Auscultation: normal bowel sounds; abdomen not distended Percussion/Palpation: + abdomen tender and abdomen soft; no guarding, abdomen not rigid and no abdominal mass Skin: no rashes, warm and dry Results & Data ([facility]) Vital Signs (Past 12 Hours) Vital Signs Temp Pulse Pulse Pulse Resp BP BP 02/16/21 06:36 36.7 C 68 20 133/78 02/16/21 04:04 71 150/94 H 02/15/21 23:30 37.4 C 69 16 156/101 H 02/15/21 23:00 73 15 150/82 H 02/15/21 22:50 75 16 02/15/21 22:40 78 16 02/15/21 22:30 73 7 L 150/86 H Pulse Ox 02/16/21 06:36 94 02/16/21 04:04 02/15/21 23:30 93 02/15/21 23:00 96 02/15/21 22:50 96 02/15/21 22:40 96 02/15/21 22:30 96 Laboratory Results 02/16/21 02/16/21 02/16/21 Range/Units 05:45 05:45 05:45 WBC 14.72 H (4.8-10.8) K/uL RBC 4.93 (4.7-6.1) M/uL Hgb 15.5 (14.0-18.0) g/dL Hct 44.7 (42-52) % MCV 90.7 (80-100) fL MCH 31.4 (25-34) pg MCHC 34.7 (32-36) g/dL RDW Std Deviation 44.7 (36.4-46.3) fL RDW Coeff of Lisandro 13.5 (11.5-14.5) % Plt Count 199 (130-400) K/uL MPV 10.2 (7.4-10.4) fL Immature Gran % (Auto) 0.3 % Neut % (Auto) 71.1 % Lymph % (Auto) 14.5 % Baldwin % (Auto) 12.6 % Eos % (Auto) 1.3 % Baso % (Auto) 0.2 % Neut # (Auto) 10.47 H (1.4-6.5) K/uL Lymph # (Auto) 2.13 (1.2-3.4) K/uL Baldwin # (Auto) 1.86 H (0.11-0.59) K/uL Eos # (Auto) 0.19 (0-0.5) K/uL Baso # (Auto) 0.03 (0-0.2) K/uL Immature Gran # (Auto) 0.04 H (0.00-0.02) K/uL Sodium 135 L (136-145) mmol/L Potassium 3.7 (3.5-5.1) mmol/L Chloride 102 (98-107) mmol/L Carbon Dioxide 31 (21-32) mmol/L Anion Gap 2.0 L (3-11) BUN 9 (7-18) mg/dl Creatinine 0.79 (0.6-1.4) mg/dl Est Cr Clr Drug Dosing 154.2 ml/min Est GFR ( Amer) 120.5 ml/min Est GFR (Non-Af Amer) 104.0 ml/min BUN/Creatinine Ratio 12.0 (10-20) Glucose 145 H (70-99) mg/dl POC Glucose (70-99) mg/dl Estimat Average Glucose 128 mg/dl Hemoglobin A1c 6.1 H (4.5-5.6) % Calcium 7.7 L (8.5-10.1) mg/dl Magnesium (1.8-2.4) mg/dl Total Bilirubin 3.8 H (0.2-1) mg/dl AST 16 (15-37) U/L ALT 22 (12-78) U/L Alkaline Phosphatase 49 (45-117) U/L Troponin I (0-0.045) ng/ml Total Protein 6.2 L (6.4-8.2) gm/dl Albumin 3.0 L (3.4-5.0) gm/dl Globulin 3.2 (2.5-4.0) gm/dl Albumin/Globulin Ratio 0.9 (0.9-2) Lipase (73-393) U/L Procalcitonin (0-0.5) ng/ml Specimen Hemolysis Lyme Disease IgG Ab (Negative) Lyme Disease IgM Ab (Negative) COVID-19 Eval Order SARS-CoV-2 (PCR) (Negative) 02/16/21 02/15/21 02/15/21 Range/Units 05:37 23:49 21:20 WBC (4.8-10.8) K/uL RBC (4.7-6.1) M/uL Hgb (14.0-18.0) g/dL Hct (42-52) % MCV (80-100) fL MCH (25-34) pg MCHC (32-36) g/dL RDW Std Deviation (36.4-46.3) fL RDW Coeff of Lisandro (11.5-14.5) % Plt Count (130-400) K/uL MPV (7.4-10.4) fL Immature Gran % (Auto) % Neut % (Auto) % Lymph % (Auto) % Baldwin % (Auto) % Eos % (Auto) % Baso % (Auto) % Neut # (Auto) (1.4-6.5) K/uL Lymph # (Auto) (1.2-3.4) K/uL Baldwin # (Auto) (0.11-0.59) K/uL Eos # (Auto) (0-0.5) K/uL Baso # (Auto) (0-0.2) K/uL Immature Gran # (Auto) (0.00-0.02) K/uL Sodium (136-145) mmol/L Potassium (3.5-5.1) mmol/L Chloride (98-107) mmol/L Carbon Dioxide (21-32) mmol/L Anion Gap (3-11) BUN (7-18) mg/dl Creatinine (0.6-1.4) mg/dl Est Cr Clr Drug Dosing ml/min Est GFR ( Amer) ml/min Est GFR (Non-Af Amer) ml/min BUN/Creatinine Ratio (10-20) Glucose (70-99) mg/dl POC Glucose 156 H 135 H (70-99) mg/dl Estimat Average Glucose mg/dl Hemoglobin A1c (4.5-5.6) % Calcium (8.5-10.1) mg/dl Magnesium (1.8-2.4) mg/dl Total Bilirubin (0.2-1) mg/dl AST (15-37) U/L ALT (12-78) U/L Alkaline Phosphatase (45-117) U/L Troponin I (0-0.045) ng/ml Total Protein (6.4-8.2) gm/dl Albumin (3.4-5.0) gm/dl Globulin (2.5-4.0) gm/dl Albumin/Globulin Ratio (0.9-2) Lipase (73-393) U/L Procalcitonin (0-0.5) ng/ml Specimen Hemolysis Lyme Disease IgG Ab (Negative) Lyme Disease IgM Ab (Negative) COVID-19 Eval Order SARS-CoV-2 (PCR) NEGATIVE (Negative) 02/15/21 02/15/21 02/15/21 Range/Units 21:20 19:38 19:38 WBC (4.8-10.8) K/uL RBC (4.7-6.1) M/uL Hgb (14.0-18.0) g/dL Hct (42-52) % MCV (80-100) fL MCH (25-34) pg MCHC (32-36) g/dL RDW Std Deviation (36.4-46.3) fL RDW Coeff of Lisandro (11.5-14.5) % Plt Count (130-400) K/uL MPV (7.4-10.4) fL Immature Gran % (Auto) % Neut % (Auto) % Lymph % (Auto) % Baldwin % (Auto) % Eos % (Auto) % Baso % (Auto) % Neut # (Auto) (1.4-6.5) K/uL Lymph # (Auto) (1.2-3.4) K/uL Baldwin # (Auto) (0.11-0.59) K/uL Eos # (Auto) (0-0.5) K/uL Baso # (Auto) (0-0.2) K/uL Immature Gran # (Auto) (0.00-0.02) K/uL Sodium 135 L (136-145) mmol/L Potassium 3.7 (3.5-5.1) mmol/L Chloride 99 (98-107) mmol/L Carbon Dioxide 32 (21-32) mmol/L Anion Gap 4.0 (3-11) BUN 11 (7-18) mg/dl Creatinine 1.02 (0.6-1.4) mg/dl Est Cr Clr Drug Dosing 119.4 ml/min Est GFR ( Amer) 98.2 ml/min Est GFR (Non-Af Amer) 84.7 ml/min BUN/Creatinine Ratio 10.7 (10-20) Glucose 149 H (70-99) mg/dl POC Glucose (70-99) mg/dl Estimat Average Glucose mg/dl Hemoglobin A1c (4.5-5.6) % Calcium 8.5 (8.5-10.1) mg/dl Magnesium 1.9 (1.8-2.4) mg/dl Total Bilirubin 3.2 H D (0.2-1) mg/dl AST 16 (15-37) U/L ALT 28 (12-78) U/L Alkaline Phosphatase 60 (45-117) U/L Troponin I < 0.015 (0-0.045) ng/ml Total Protein 7.4 (6.4-8.2) gm/dl Albumin 3.5 (3.4-5.0) gm/dl Globulin 3.9 (2.5-4.0) gm/dl Albumin/Globulin Ratio 0.9 (0.9-2) Lipase 74 (73-393) U/L Procalcitonin 0.11 (0-0.5) ng/ml Specimen Hemolysis Lyme Disease IgG Ab Negative (Negative) Lyme Disease IgM Ab Negative (Negative) COVID-19 Eval Order Covid19 at [facility] SARS-CoV-2 (PCR) (Negative) 02/15/21 Range/Units 19:38 WBC 16.26 H (4.8-10.8) K/uL RBC 5.61 (4.7-6.1) M/uL Hgb 17.3 (14.0-18.0) g/dL Hct 49.7 (42-52) % MCV 88.6 (80-100) fL MCH 30.8 (25-34) pg MCHC 34.8 (32-36) g/dL RDW Std Deviation 43.3 (36.4-46.3) fL RDW Coeff of Lisandro 13.3 (11.5-14.5) % Plt Count 193 (130-400) K/uL MPV 10.5 H (7.4-10.4) fL Immature Gran % (Auto) 0.4 % Neut % (Auto) 75.2 % Lymph % (Auto) 11.5 % Baldwin % (Auto) 11.9 % Eos % (Auto) 0.9 % Baso % (Auto) 0.1 % Neut # (Auto) 12.22 H (1.4-6.5) K/uL Lymph # (Auto) 1.87 (1.2-3.4) K/uL Baldwin # (Auto) 1.94 H (0.11-0.59) K/uL Eos # (Auto) 0.14 (0-0.5) K/uL Baso # (Auto) 0.02 (0-0.2) K/uL Immature Gran # (Auto) 0.07 H (0.00-0.02) K/uL Sodium (136-145) mmol/L Potassium (3.5-5.1) mmol/L Chloride (98-107) mmol/L Carbon Dioxide (21-32) mmol/L Anion Gap (3-11) BUN (7-18) mg/dl Creatinine (0.6-1.4) mg/dl Est Cr Clr Drug Dosing ml/min Est GFR ( Amer) ml/min Est GFR (Non-Af Amer) ml/min BUN/Creatinine Ratio (10-20) Glucose (70-99) mg/dl POC Glucose (70-99) mg/dl Estimat Average Glucose mg/dl Hemoglobin A1c (4.5-5.6) % Calcium (8.5-10.1) mg/dl Magnesium (1.8-2.4) mg/dl Total Bilirubin (0.2-1) mg/dl AST (15-37) U/L ALT (12-78) U/L Alkaline Phosphatase (45-117) U/L Troponin I (0-0.045) ng/ml Total Protein (6.4-8.2) gm/dl Albumin (3.4-5.0) gm/dl Globulin (2.5-4.0) gm/dl Albumin/Globulin Ratio (0.9-2) Lipase (73-393) U/L Procalcitonin (0-0.5) ng/ml Specimen Hemolysis Lyme Disease IgG Ab (Negative) Lyme Disease IgM Ab (Negative) COVID-19 Eval Order SARS-CoV-2 (PCR) (Negative)
[2021-02-16] MEDS ORDERED: MIDAZOLAM HCL 1 MG/ML 2ML VIAL ONE (12:42)
[2021-02-16] MEDS ORDERED: fentaNYL citrate 100 MCG/2 ML VIAL ONE ×2 (12:42→14:46)
[2021-02-16] MEDS ORDERED: fentaNYL citrate 100 MCG/2 ML VIAL IV PRN (12:48)
[2021-02-16] MEDS ORDERED: ONDANSETRON INJ 2 MG/ML 2 ML VIAL IV PRN (12:48)
[2021-02-16] MEDS ORDERED: ATROPINE SULFATE 0.1 MG/ML 10ML SYR IV PRN (12:48)
[2021-02-16] MEDS ORDERED: ePHEDrine sulfate 50 MG/ML AMP IV PRN (12:48)
--- NOTE | 2021-02-16 12:48 | Anesthesiology Consultation ---
Date of Service February 16, 2021 Assessment & Plan (1) Encounter for pre-operative examination: Chart Review Chart Review: Acceptable Risk for Surgery and Patient NOT seen in Pre Admission Testing Consults Requested none ASA ASA2 Proposed Anesthesia Anesthesia Type: General Risk / Benefits Reviewed With: PT / POA / Parent / Guardian, Accepts Plan and In formed Consent Obtained History Surgery Operation Date: 02/16/21 08:20 Proposed Procedures p Endoscopic Retrograde Cholangiopancreatogram - Jacki Underwood MD s Laparoscopic Cholecystectomy - Rodrigo Arenas MD, FACS Height/Weight Height: 6 ft Weight: 130 kg Allergies Allergy/AdvReac Type Severity Reaction Status Date / Time No Known Allergies Allergy Unknown Verified 02/15/21 19:46 Medications Home Medications Medication Instructions Recorded Confirmed Last Taken omeprazole 40 mg PO DAILY 14 Days #14 cap 02/14/21 02/15/21 Unknown famotidine 20 mg PO DAILY PRN 02/15/21 02/15/21 Unknown ibuprofen 600 mg PO Q8H PRN 02/15/21 02/15/21 Unknown Active Medications Generic Name Dose Route Start Last Admin Trade Name Freq PRN Reason Stop Dose Admin Piperacillin Sod/Tazobactam 120 mls @ 30 mls/hr 02/16/21 02:00 02/16/21 09:40 Sod 4.5 gm/ Dextrose IV 02/26/21 01:59 30 mls/hr Q8H HUSSEIN Administration Protocol Lactated Ringer's 1,000 mls @ 125 mls/hr 02/15/21 23:44 02/16/21 08:46 Lr IV 03/17/21 23:43 125 mls/hr .Q8H HUSSEIN Administration Insulin Aspart 0 units 02/16/21 07:30 02/16/21 08:44 Insulin Aspart 100 Units/Ml 3 Ml Pen SC 03/18/21 07:29 Not Given ACHS HUSSEIN Pantoprazole Sodium 40 mg 02/16/21 09:00 02/16/21 09:40 Pantoprazole 40 Mg Tab PO 03/18/21 08:59 40 mg DAILY HUSSEIN Administration NPO Date Last Intake of Fluids: 02/15/21 Time Last Intake of Fluids: 23:59 Date Last Intake of Solids: 02/13/21 Past Medical History Medical History No acute medical problems Exercise / Class Metabolic Activity II 4-5 Yardwork/Stairs/Walk up hill Past Family History Family History Other Congestive heart failure (CHF) Past Surgical History Surgical History History of appendectomy No pertinent past surgical history Past Anesthesia History No Hx of Anesthesia Complications and No Family Hx of Anesthesia Complications History of PONV No Hx of PONV and No Hx of Motion Sickness Social History Smoking Status: Never smoker tobacco type: smokeless tobacco Do You Dip or Chew Tobacco: Yes Hx Alcohol Use: Yes Alcohol type: beer, wine and hard liquor alcohol intake frequency: holidays/special occasions only Hx Substance Use: No Physical Exam Vital Signs Last Vital Signs Temp 37.4 C 02/16/21 12:41 Pulse 69 02/16/21 12:41 Resp 20 02/16/21 12:41 BP 178/90 H 02/16/21 12:41 Pulse Ox 93 02/16/21 12:41 Constitutional + obese ENMT Mouth: no dentition abnormality Thyromental Distance: > or= 3.5 Finger Breadths Mallampati Class: II Neck normal visual inspection Respiratory normal respiratory effort Auscultation: lungs clear to auscultation bilaterally Cardiovascular Rate/Rhythm: regular rate and regular rhythm Psychiatric Orientation: alert Testing Laboratory Results 02/16/21 05:45 02/16/21 05:45 Hemoglobin A1c 6.1 % (4.5-5.6) H 02/16/21 05:45 02/16/21 02/16/21 12:12 05:37 POC Glucose 119 H 156 H
[2021-02-16] MEDS ORDERED: BUPIVACAINE 0.5 % 5 MG/1 ML MPF 30ML VIAL ONE (12:57)
[2021-02-16] MEDS ORDERED: INDOMETHACIN 50 MG SUPP PR ONE (12:57)
--- NOTE | 2021-02-16 13:15 | History & Physical Bridge Note ---
Date of Service February 16, 2021 History & Physical Bridge Note I have examined the patient, reviewed the History & Physical and in the interval since the performance of the History & Physical I have noted the following changes of clinical significance: no changes noted EUS/ERCP today Patient was explained in detail regarding risks, benefits, limitations and alternatives of the above endoscopic procedure. Risks of intravenous sedation used for procedure were also explained. Risks include, but not limited to pe rforation, bleeding, infection, respiratory distress, cardiac arrest and . Patient is also aware about the possibility of missed lesion. Patient's questions were answered. The patient verbalized understanding the information and agreed to undergo the procedure.
--- NOTE | 2021-02-16 13:22 | Electrocardiogram Report ---
Test Reason : Blood Pressure : / mmHG Vent. Rate : 087 BPM Atrial Rate : 087 BPM P-R Int : 158 ms QRS Dur : 094 ms QT Int : 362 ms P-R-T Axes : 001 -21 001 degrees QTc Int : 435 ms Normal sinus rhythm Normal ECG When compared with ECG of 14-FEB-2021 05:47, Vent. rate has increased BY 40 BPM Confirmed by Raul Mora ([id number]) on 02/16/2021 1:21:26 PM Referred By: REFERRED SELF Confirmed By:Raul Mora
--- NOTE | 2021-02-16 13:24 | History & Physical Bridge Note ---
Date of Service February 16, 2021 History & Physical Bridge Note I have examined the patient, reviewed the History & Physical and in the interval since the performance of the History & Physical I have noted the following changes of clinical significance: no changes noted
[2021-02-16] MEDS ORDERED: DEXAMETHASONE SOD INJ 4 MG/ML VIAL ONE (13:40)
[2021-02-16] MEDS ORDERED: ROCURONIUM BROMIDE 10 MG/ML 5 ML VIAL IV ONE (13:40)
[2021-02-16] MEDS ORDERED: LIDOCAINE 2% 2 ML VIAL/AMP(20MG/ML) INFIL ONE (13:40)
[2021-02-16] MEDS ORDERED: PROPOFOL IV EMULSION 10 MG/ML 20 ML VIAL IV ONE (13:40)
[2021-02-16] MEDS ORDERED: ONDANSETRON INJ 2 MG/ML 2 ML VIAL ONE (13:40)
[2021-02-16] MEDS ORDERED: GLYCOPYRROLATE 0.2 MG/ML VIAL ONE (13:45)
[2021-02-16] MEDS ORDERED: NEOSTIGMINE METHYLSULFATE 1 MG/ML 10ML VIAL ONE (13:45)
[2021-02-16] MEDS ORDERED: hydrALAZINE HCL 20 MG/ML VIAL IV PRN (13:54)
--- NOTE | 2021-02-16 14:28 | Operative Report ---
Post Operative Report Pre & Post Diagnosis Operation Date: 02/16/21 08:20 Pre-Op Diagnosis: Cholecystitis. Post-Op Diagnosis: Cholecystitis. Biliary obstruction. I identified the patient and participated in the time-out.: Yes Procedure Operation Date: 02/16/21 08:20 Actual Procedures p Upper endoscopy with ultrasound, Endoscopic Retrograde Cholangiopancreatogram - Jacki Underwood MD s Laparoscopic Cholecystectomy - Rodrigo Arenas MD, FACS Surgeon Jacki Underwood MD Opera Singer None Estimated Blood Loss 0 Findings See Below (Papillary stenosis with biliary sludge and pus. Stent placed) Specimens None Description of Procedure EUS/ERCP I attest to the content of the Intraoperative Record and any orders documented therein. Any exceptions are noted below.
--- NOTE | 2021-02-16 14:36 | GI REPORT ---
Patient Name: Memo Liao Procedure Date: 02/16/2021 12:45 PM Date of : 1970 Admit Type: Inpatient Age: 50 Gender: Male Attending MD: Jacki Underwood MD Procedure: ERCP Providers: Jacki Underwood MD Referring MD: Rodrigo Arenas Indications: Suspected ascending cholangitis, Biliary sludge Medicines: General Anesthesia Complications: No immediate complications. Estimated Blood Loss: Estimated blood loss: none. Procedure: Pre-Anesthesia Assessment: - Prior to the procedure, a History and Physical was performed, and patient medications, allergies and sensitivities were reviewed. The patient's tolerance of previous anesthesia was reviewed. - The risks and benefits of the procedure and the sedation options and risks were discussed with the patient. All questions were answered and informed consent was obtained. - Patient identification and proposed procedure were verified prior to the procedure by the physician and the nurse. The procedure was verified in the procedure room. - Pre-procedure physical examination revealed no contraindications to sedation. After obtaining informed consent, the scope was passed under direct vision. Throughout the procedure, the patient's blood pressure, pulse, and oxygen saturations were monitored continuously. The Scope was introduced through the mouth, and advanced to the duodenum and used to inject contrast into the bile duct. The ERCP was accomplished without difficulty. The patient tolerated the procedure well. Findings: The fishing line winding machine operator film was normal. The esophagus was successfully intubated under direct vision. The scope was advanced to a normal major papilla in the descending duodenum without detailed examination of the pharynx, larynx and associated structures, and upper GI tract. The upper GI tract was grossly normal. The ventral pancreatic duct was inadvertently cannulated with the short-nosed traction sphincterotome and guidewire. A biliary pre-cut sphincterotomy was made with a monofilament needle knife using a freehand technique using ERBE electrocautery. There was no post-sphincterotomy bleeding. A 0.025 inch x 270 cm angled Visiglide wire was passed into the biliary tree. The Fusion OMNI sphincterotome was passed over the guidewire and the bile duct was then deeply cannulated. Contrast was injected. I personally interpreted the bile duct images. Ductal flow of contrast was adequate. Image quality was adequate. Contrast extended to the main bile duct. The biliary orifice was stenotic. This appeared benign. The duct diameter measured 7 mm. Cystic duct completely occluded. The biliary sphincterotomy was extended with a monofilament traction (standard) sphincterotome using ERBE electrocautery. There was no post-sphincterotomy bleeding. The biliary tree was swept with an 11.5 mm balloon starting at the bifurcation. Sludge was swept from the duct. Pus was swept from the duct. One 5 Fr by 9 cm plastic pancreatic stent with a single external pigtail and no internal flaps was placed into the ventral pancreatic duct. Clear fluid flowed through the stent. The stent was in good position. One 7 Fr by 9 cm plastic biliary stent with a single external flap and a single internal flap was placed into the common bile duct. Bile flowed through the stent. The stent was in good position. Impression: - Biliary papillary stenosis, benign. - The biliary tree was swept and sludge and pus were found. - One plastic pancreatic stent was placed into the ventral pancreatic duct. - One plastic biliary stent was placed into the common bile duct. Recommendation: - Return patient to [facility] for [facility] care. - Repeat ERCP in 6 weeks to remove stent. Jacki Underwood MD 02/16/2021 2:36:47 PM This report has been signed electronically. Note Initiated On: 02/16/2021 12:45 PM Number of Addenda: 0 I attest to the content of the Intraoperative Record and orders documented therein, exceptions below {[id number]}
--- NOTE | 2021-02-16 14:43 | GI REPORT ---
Patient Name: Memo Liao Procedure Date: 02/16/2021 1:19 PM Date of : 1970 Admit Type: Inpatient Age: 50 Gender: Male Attending MD: Jacki Underwood MD Procedure: Upper EUS Providers: Jacki Underwood MD Referring MD: Rodrigo Arenas Indications: Elevated liver enzymes Medicines: General Anesthesia Complications: No immediate complications. Estimated Blood Loss: Estimated blood loss: none. Procedure: Pre-Anesthesia Assessment: - Prior to the procedure, a History and Physical was performed, and patient medications, allergies and sensitivities were reviewed. The patient's tolerance of previous anesthesia was reviewed. - The risks and benefits of the procedure and the sedation options and risks were discussed with the patient. All questions were answered and informed consent was obtained. - Patient identification and proposed procedure were verified prior to the procedure by the physician and the nurse. The procedure was verified in the procedure room. - Pre-procedure physical examination revealed no contraindications to sedation. After obtaining informed consent, the endoscope was passed under direct vision. Throughout the procedure, the patient's blood pressure, pulse, and oxygen saturations were monitored continuously. The Endosonoscope was introduced through the mouth, and advanced to the second part of duodenum. The upper EUS was accomplished without difficulty. The patient tolerated the procedure well. Findings: ENDOSONOGRAPHIC FINDING: : There was no sign of significant endosonographic abnormality in the ampulla. Moderate hyperechoic material consistent with sludge was visualized endosonographically in the common bile duct. The maximum diameter of the duct measured 6 mm. Extensive hyperechoic material consistent with sludge was visualized endosonographically in the gallbladder. There is extensive amount of pericholecystic inflammation obscuring adequate visualization around the gallbladder. There was no sign of significant endosonographic abnormality in the visualized portion of the liver. Mild changes consistent with fatty liver. Pancreatic parenchymal abnormalities were noted in the entire pancreas. These consisted of diffuse echogenicity. A few enlarged lymph nodes were visualized in the juan hepatis region. The nodes were round, heterogenous and had well defined margins. There was no sign of significant endosonographic abnormality in the visualized portion of the left adrenal gland. There was no sign of significant endosonographic abnormality involving the celiac trunk. Impression: - There was no sign of significant pathology in the ampulla. - Hyperechoic material consistent with sludge was visualized endosonographically in the common bile duct. - Hyperechoic material consistent with sludge was visualized endosonographically in the gallbladder. - Extensive amount of pericholecystic inflammation obscuring adequate visualization around the gallbladder. - There was no evidence of significant pathology in the visualized portion of the liver. - Fatty pancreas. - A few enlarged lymph nodes were visualized in the juan hepatis region likely benign inflammatory changes. - Endosonographic images of the left adrenal gland were unremarkable. - The celiac trunk was endosonographically normal. - No specimens collected. Recommendation: - Perform an ERCP today. - CT scan of the abdomen in 3 months to assure resolution of the enlarged LN. Jacki Underwood MD 02/16/2021 2:42:25 PM This report has been signed electronically. Note Initiated On: 02/16/2021 1:19 PM Number of Addenda: 0 I attest to the content of the Intraoperative Record and orders documented therein, exceptions below {[id number]}
--- NOTE | 2021-02-16 14:48 | Fluoroscopy Report ---
[place] ERCP biliary ductal CLINICAL HISTORY: W/LAP LUZ COMPARISON STUDY: None FLUOROSCOPY TIME: 66 seconds. NUMBER OF FLUOROSCOPIC IMAGES: 12 FINDINGS: 12 intraprocedural fluoroscopic spot images are provided for interpretation. These demonstr ate retrograde catheterization of the pancreatic and common bile duct. Image #5 demonstrates a slight ly beaded appearance of the mid to distal common bile duct. There is also a beaded appearance of the proximal left hepatic duct Final images demonstrate placement of biliary and pancreatic enteric stent s. IMPRESSION: 1. Fluoroscopic spot images obtained during ERCP 2. Somewhat beaded appearance of the distal common bile duct and proximal left hepatic duct 3. Placement of biliary and pancreatic enteric stents. ACT 112: Negative or not required by law. Electronically signed by: Jared Bradshaw M.D. 02/16/2021 2:47 PM
[2021-02-16] MEDS ORDERED: FLOSEAL HEMOSTATIC MATRIX 10ML TOP ONE (15:10)
--- NOTE | 2021-02-16 15:42 | Post Operative Brief Note ---
PG Immediate Post Op with CF Date of Surgery February 16, 2021 Pre & Post Diagnosis Operation Date: 02/16/21 08:20 Pre-Op Diagnosis: Cholecystitis. Post-Op Diagnosis: Cholecystitis. Biliary obstruction. Gangrenous cholecystitis I identified the patient and participated in the time-out.: Yes Procedure Operation Date: 02/16/21 08:20 Actual Procedures p Upper endoscopy with ultrasound, Endoscopic Retrograde Cholangiopancreatogram - Jacki Underwood MD s Laparoscopic Cholecystectomy - Rodrigo Arenas MD, FACS Surgeon Rodrigo Arenas MD, FACS Android Developer None Estimated Blood Loss 30 Findings Consistent with Post-Op Diagnosis Specimens Specimen Description: A. Gallbladder and contents. Drains Larry-Coats Drain (19f round.)
--- NOTE | 2021-02-16 16:21 | Anesthesiology Progress Note ---
Date of Service February 16, 2021 Anesthesia Post Procedure Vital Signs Vital Signs: Temp Pulse Pulse Pulse Pulse Resp BP 02/16/21 16:20 62 18 02/16/21 16:10 69 18 02/16/21 16:00 36.3 C L 74 16 02/16/21 12:41 37.4 C 69 20 02/16/21 06:36 36.7 C 68 20 02/16/21 04:04 71 02/15/21 23:30 37.4 C 69 16 02/15/21 23:00 73 15 150/82 H 02/15/21 22:50 75 16 02/15/21 22:40 78 16 02/15/21 22:30 73 7 L 150/86 H 02/15/21 22:20 73 17 02/15/21 22:10 75 13 02/15/21 22:00 70 21 146/82 H 02/15/21 21:50 78 34 H 02/15/21 21:40 77 18 02/15/21 21:30 76 6 L 137/76 02/15/21 21:20 85 12 02/15/21 21:10 78 02/15/21 21:00 75 13 141/75 H 02/15/21 20:50 80 18 02/15/21 20:40 82 02/15/21 20:34 38.5 C H 02/15/21 20:30 83 10 L 154/85 H 02/15/21 20:27 38.5 C H 02/15/21 20:20 85 02/15/21 20:10 88 02/15/21 20:00 86 147/86 H 02/15/21 19:50 90 11 L 02/15/21 19:44 80 14 02/15/21 19:42 81 20 149/91 H 02/15/21 19:39 02/15/21 19:38 02/15/21 18:17 39.2 C H 95 H 18 163/92 H BP Pulse Ox 02/16/21 16:20 133/75 93 02/16/21 16:10 137/73 92 02/16/21 16:00 131/71 93 02/16/21 12:41 178/90 H 93 02/16/21 06:36 133/78 94 02/16/21 04:04 150/94 H 02/15/21 23:30 156/101 H 93 02/15/21 23:00 96 02/15/21 22:50 96 02/15/21 22:40 96 02/15/21 22:30 96 02/15/21 22:20 94 02/15/21 22:10 97 02/15/21 22:00 96 02/15/21 21:50 95 02/15/21 21:40 96 02/15/21 21:30 94 02/15/21 21:20 95 02/15/21 21:10 94 02/15/21 21:00 94 02/15/21 20:50 93 02/15/21 20:40 95 02/15/21 20:34 02/15/21 20:30 94 02/15/21 20:27 02/15/21 20:20 94 02/15/21 20:10 94 02/15/21 20:00 95 02/15/21 19:50 96 02/15/21 19:44 95 02/15/21 19:42 93 02/15/21 19:39 95 02/15/21 19:38 89 L 02/15/21 18:17 94 Pain Intensity Left Abdomen: Pain Intensity: 5 Transfer of Care Handoff Completed per policy Notes Mental Status: alert / awake / arousable Patient Amnestic to Procedure: Yes Nausea / Vomiting: adequately controlled Pain: adequately controlled Airway Patency, RR, SpO2: stable & adequate BP & HR: stable & adequate Hydration State: stable & adequate Anesthetic Complications: no major complications apparent
--- NOTE | 2021-02-16 16:40 | Operative Report (OR) ---
DATE OF PROCEDURE: 02/16/2021 NAME OF OPERATION: Laparoscopic cholecystectomy. PREOPERATIVE DIAGNOSIS: Acute cholecystitis. POSTOPERATIVE DIAGNOSES: Acute cholecystitis with gangrenous cholecystitis. SURGEON: Rodrigo Arenas MD. ASSISTANTS: Mirza Jackson MD and Haylie Kaur PA-C. ANESTHESIA: General. DESCRIPTION OF PROCEDURE: The patient was brought in the operating room and placed on the operating room table in supine position. Initially, the patient underwent upper endoscopy and ERCP by Dr. Talita maki and had a stent placed with debris removed from the common bile duct. We then performed lapar oscopic cholecystectomy using 0.5% plain Marcaine to anesthetize all incisions. Incision was made ab ove the umbilicus, carrying dissection down to the fascia, placing a Veress needle producing pneumope ritoneum. Under visualization, three 5 mm ports were placed, one cephalad and two laterally. The om entum was adherent to the gallbladder. The patient had severe inflammation and necrosis of the gallb ladder, all consistent with gangrenous cholecystitis. The adhesions were taken down. Dissection car ried out to the juan hepatis, identifying the cystic duct and cystic artery. These were clipped and transected. Gallbladder then dissected away from the liver bed with some difficulty because of the inflammation and scar tissue, it was also chronically inflamed. It was placed in an Endobag. The si te was irrigated. FloSeal was placed in the hepatic bed. The Endobag was then removed from the umbi lical site using a 5 mm scope. We had to enlarge the fascial defect to remove the large gallbladder. The fascia was closed using 0 PDS suture and then skin reapproximated using 4-0 nylon suture. The bryan olivo was transferred to recovery room in stable condition. Job ID: [id number]
[2021-02-16] MEDS ORDERED: IBUPROFEN 600 MG TAB PO PRN (16:58)
[2021-02-16] MEDS ORDERED: PROMETHAZINE HCL 25 MG in SODIUM CHLORIDE 0.9% 50 ML IV PRN (16:58)
[2021-02-16] MEDS ORDERED: HYDROmorphone INJ 1 MG/ML SYRINGE IV PRN (16:58)
[2021-02-16] MEDS ORDERED: HYDROmorphone INJ 0.5 MG/0.5 ML SYR IV PRN (16:58)
[2021-02-16] MEDS ORDERED: PROMETHAZINE HCL 12.5 MG in SODIUM CHLORIDE 0.9% 50 ML IV PRN (16:58)
[2021-02-16] MEDS ORDERED: oxyCODONE HCL IR 5 MG TAB (IMMEDIATE RELEASE) PO PRN (16:58)
[2021-02-16] MEDS: SODIUM CHLORIDE 0.9% 1000ML 1,000 ML IV SCH (17:36)
--- NOTE | 2021-02-16 21:36 | Billing Data ---
Date of Service February 16, 2021 Coding Level of Care Code 41941 Inpt Consult Level 3
[2021-02-17] MEDS: PIPERACILLIN/TAZOBACTAM 4.5 GM in DEXTROSE 5% 100 ML IV SCH (02:16)
[2021-02-17] MEDS: SODIUM CHLORIDE 0.9% 1000ML 1,000 ML IV SCH (03:47)
[2021-02-17 06:43] LABS: BUN Creatinine Ratio 12.4 (10-20); Bilirubin Direct 0.4 mg/dl (0-0.2); Calcium 9.3 mg/dl (8.5-10.1); Est GFR (African American) 94.8 ml/min; Est GFR (Non-African American) 81.8 ml/min; Potassium 4.4 mmol/L (3.5-5.1)
[2021-02-17 06:48] LABS: Albumin Globulin Ratio 0.7 (0.9-2); Bilirubin,Total 1.7 mg/dl (0.2-1); Globulin 4.2 gm/dl (2.5-4.0); Phosphorus 2.7 mg/dl (2.5-4.9); Total Protein 7.2 gm/dl (6.4-8.2)
--- NOTE | 2021-02-17 06:51 | Surgery Progress Note ---
Date of Service February 17, 2021 Assessment & Plan (1) S/P laparoscopic cholecystectomy: Patient had necrotizing/gangrenous cholecystitis He has a drain in place which is putting out serosanguineous fluid/expected He is tolerating some p.o. From a surgical standpoint he can be discharged home with his drain in place- after lunch if other services agree We will see in the office next week for drain removal Pain medication and antibiotics sent to his pharmacy Should walk in the [place] this morning Admission and Anticipated Discharge Date Admission Date: February 15, 2021 Results & Data ([facility]) Vital Signs (Past 12 Hours) Vital Signs Temp Pulse Resp BP BP Pulse Ox 02/16/21 23:49 36.7 C 76 16 137/74 91 02/16/21 20:10 36.7 C 84 18 133/74 92 02/16/21 19:09 36.9 C 76 18 131/76 95 PG Care Time/CCT Total # of Minutes Spent Total Time Spent with Patient: Total time spent is greater than 50% in coordination of care (as documented) at patient's floor/unit and/or counseling patient: Coding Level of Care Code None Diagnoses S/P laparoscopic cholecystectomy Z90.49
[2021-02-17 06:57] LABS: Mean Corpuscular Hemoglobin 31.1 pg (25-34); Mean Corpuscular Hgb Conc 34.8 g/dL (32-36); Mean Corpuscular Volume 89.5 fL (80-100); Mean Platelet Volume 10.7 fL (7.4-10.4); Platelet Count 239 K/uL (130-400); RDW Coefficient of Variation 13.2 % (11.5-14.5); RDW Standard Deviation 43.2 fL (36.4-46.3); Red Blood Count 5.14 M/uL (4.7-6.1); White Blood Count 17.51 K/uL (4.8-10.8)
[2021-02-17 06:59] LABS: Basophils # (auto) 0.01 K/uL (0-0.2); Basophils % (auto) 0.1 %; Eosinophils # (auto) 0.02 K/uL (0-0.5); Eosinophils % (auto) 0.1 %; Immature Granulocytes # (auto) 0.06 K/uL (0.00-0.02); Immature Granulocytes % (auto) 0.3 %; Lymphocytes # (auto) 1.46 K/uL (1.2-3.4); Lymphocytes % (auto) 8.3 %; Monocytes # (auto) 1.07 K/uL (0.11-0.59); Monocytes % (auto) 6.1 %; Neutrophils # (auto) 14.89 K/uL (1.4-6.5); Neutrophils % (auto) 85.1 %
[2021-02-17] MEDS ORDERED: AMOXICILLIN/CLAVULANATE 875 MG TAB PO SCH (08:30)
--- NOTE | 2021-02-17 08:41 | Anesthesiology Progress Note ---
Date of Service February 17, 2021 Anesthesia Post Procedure Vital Signs Vital Signs: Temp Pulse Pulse Resp BP BP Pulse Ox 02/17/21 07:15 36.5 C 76 18 135/77 96 02/16/21 23:49 36.7 C 76 16 137/74 91 02/16/21 20:10 36.7 C 84 18 133/74 92 02/16/21 19:09 36.9 C 76 18 131/76 95 02/16/21 17:40 36.3 C L 73 20 146/90 H 93 02/16/21 17:10 36.9 C 63 20 135/73 96 02/16/21 16:50 36.4 C L 64 14 134/80 92 02/16/21 16:40 65 12 128/72 92 02/16/21 16:30 65 12 125/71 95 02/16/21 16:20 62 18 133/75 93 02/16/21 16:10 69 18 137/73 92 02/16/21 16:00 36.3 C L 74 16 131/71 93 02/16/21 12:41 37.4 C 69 20 178/90 H 93 Pain Intensity Left Abdomen: Pain Intensity: 6 Notes Mental Status: alert / awake / arousable and participated in evaluation Patient Amnestic to Procedure: Yes Nausea / Vomiting: adequately controlled Pain: adequately controlled Airway Patency, RR, SpO2: stable & adequate (patient still on 1 L O2 via NC with spo2 at 94%. Patient's O2 requirement lower than what he required preoperatively. ) BP & HR: stable & adequate Hydration State: stable & adequate Anesthetic Complications: no major complications apparent
[2021-02-17] MEDS: PANTOprazole 40 MG TAB PO SCH (09:08)
[2021-02-17] MEDS: INSULIN ASPART 100 UNITS/ML 3 ML PEN SC SCH (09:08)
--- NOTE | 2021-02-17 09:30 | Gastroenterology Progress Note ---
Date of Service February 17, 2021 Assessment & Plan (1) Cholecystitis: 50 year old male with abd pain, nausea, vomiting imaging concerning for cholecystics, GI asked to evaluate for pre-operative EUS/ERCP giving elevated Tbili and sludge filled GB. S/P ERCP w/ biliary papillary stenosis, benign, ludge and pus were found. No GI contraindication to diet No GI contraindication to discharge Complete full course of ABX as ordered Repeat ERCP in 6 weeks to remove stent Recall GI as needed.Thank you for allowing us to participate in the care of this patient. Please call with any acute changes, questions or concerns. Please see addendum below with additional recommendation from my supervising physician. Admission and Anticipated Discharge Date Admission Date: February 15, 2021 Subjective Pt was seen and evaluated, chart reviewed S/P ERCP, CCY w/ stent placement Feeling well Tolerating PO no nausea, vomiting Wants to go home Review of Systems Review of Systems: All systems reviewed & are unremarkable except as noted in HPI & below Physical Exam Constitutional: WD/WN, vitals as above no acute distress and not ill appearing Respiratory: normal respiratory effort, lungs clear to auscultation Cardiovascular: RRR, no murmur, no edema Gastrointestinal (Abdomen): Inspection/Auscultation: normal bowel sounds; abdomen not distended Percussion/Palpation: abdomen soft; abdomen nontender, no guarding, abdomen not rigid and no abdominal mass Drain in place w/ expected output for POD # 1 Skin: no rashes, warm and dry Results & Data ([facility]) Vital Signs (Past 12 Hours) Vital Signs Temp Pulse Pulse Resp BP Pulse Ox 02/17/21 07:15 36.5 C 76 18 135/77 96 02/16/21 23:49 36.7 C 76 16 137/74 91 Laboratory Results 02/17/21 02/17/21 02/17/21 Range/Units 08:04 05:43 05:43 WBC 17.51 H (4.8-10.8) K/uL RBC 5.14 (4.7-6.1) M/uL Hgb 16.0 (14.0-18.0) g/dL Hct 46.0 (42-52) % MCV 89.5 (80-100) fL MCH 31.1 (25-34) pg MCHC 34.8 (32-36) g/dL RDW Std Deviation 43.2 (36.4-46.3) fL RDW Coeff of Lisandro 13.2 (11.5-14.5) % Plt Count 239 (130-400) K/uL MPV 10.7 H (7.4-10.4) fL Immature Gran % (Auto) 0.3 % Neut % (Auto) 85.1 % Lymph % (Auto) 8.3 % Greenwood % (Auto) 6.1 % Eos % (Auto) 0.1 % Baso % (Auto) 0.1 % Neut # (Auto) 14.89 H (1.4-6.5) K/uL Lymph # (Auto) 1.46 (1.2-3.4) K/uL Greenwood # (Auto) 1.07 H (0.11-0.59) K/uL Eos # (Auto) 0.02 (0-0.5) K/uL Baso # (Auto) 0.01 (0-0.2) K/uL Immature Gran # (Auto) 0.06 H (0.00-0.02) K/uL Sodium 140 (136-145) mmol/L Potassium 4.4 D (3.5-5.1) mmol/L Chloride 104 (98-107) mmol/L Carbon Dioxide 33 H (21-32) mmol/L Anion Gap 3.0 (3-11) BUN 13 (7-18) mg/dl Creatinine 1.05 (0.6-1.4) mg/dl Est Cr Clr Drug Dosing 116.0 ml/min Est GFR ( Amer) 94.8 ml/min Est GFR (Non-Af Amer) 81.8 ml/min BUN/Creatinine Ratio 12.4 (10-20) Glucose 160 H (70-99) mg/dl POC Glucose 158 H (70-99) mg/dl Calcium 9.3 D (8.5-10.1) mg/dl Phosphorus 2.7 (2.5-4.9) mg/dl Total Bilirubin 1.7 H D (0.2-1) mg/dl Direct Bilirubin 0.4 H (0-0.2) mg/dl AST 38 H (15-37) U/L ALT 42 (12-78) U/L Alkaline Phosphatase 57 (45-117) U/L Total Protein 7.2 (6.4-8.2) gm/dl Albumin 3.0 L (3.4-5.0) gm/dl Globulin 4.2 H (2.5-4.0) gm/dl Albumin/Globulin Ratio 0.7 L (0.9-2) Lipase 158 (73-393) U/L 02/16/21 02/16/21 02/16/21 Range/Units 20:35 17:13 12:12 WBC (4.8-10.8) K/uL RBC (4.7-6.1) M/uL Hgb (14.0-18.0) g/dL Hct (42-52) % MCV (80-100) fL MCH (25-34) pg MCHC (32-36) g/dL RDW Std Deviation (36.4-46.3) fL RDW Coeff of Lisandro (11.5-14.5) % Plt Count (130-400) K/uL MPV (7.4-10.4) fL Immature Gran % (Auto) % Neut % (Auto) % Lymph % (Auto) % Greenwood % (Auto) % Eos % (Auto) % Baso % (Auto) % Neut # (Auto) (1.4-6.5) K/uL Lymph # (Auto) (1.2-3.4) K/uL Greenwood # (Auto) (0.11-0.59) K/uL Eos # (Auto) (0-0.5) K/uL Baso # (Auto) (0-0.2) K/uL Immature Gran # (Auto) (0.00-0.02) K/uL Sodium (136-145) mmol/L Potassium (3.5-5.1) mmol/L Chloride (98-107) mmol/L Carbon Dioxide (21-32) mmol/L Anion Gap (3-11) BUN (7-18) mg/dl Creatinine (0.6-1.4) mg/dl Est Cr Clr Drug Dosing ml/min Est GFR ( Amer) ml/min Est GFR (Non-Af Amer) ml/min BUN/Creatinine Ratio (10-20) Glucose (70-99) mg/dl POC Glucose 206 H 173 H 119 H (70-99) mg/dl Calcium (8.5-10.1) mg/dl Phosphorus (2.5-4.9) mg/dl Total Bilirubin (0.2-1) mg/dl Direct Bilirubin (0-0.2) mg/dl AST (15-37) U/L ALT (12-78) U/L Alkaline Phosphatase (45-117) U/L Total Protein (6.4-8.2) gm/dl Albumin (3.4-5.0) gm/dl Globulin (2.5-4.0) gm/dl Albumin/Globulin Ratio (0.9-2) Lipase (73-393) U/L
--- NOTE | 2021-02-21 14:52 | Discharge Summary (DS) ---
DATE OF ADMISSION: 02/15/2021 DATE OF DISCHARGE: 02/17/2021 PRINCIPAL DIAGNOSES: Cholangitis and gangrenous cholecystitis. PROCEDURES: The patient underwent ERCP with stent placement and also laparoscopic cholecystectomy an d drain placement. HISTORY OF PRESENT ILLNESS: The patient is a 50-year-old male admitted through the Emergency Room wi th acute abdominal pain and fever with what appeared to be sepsis. It was felt that the patient had potential debris in his common duct. He was seen by gastroenterology. On 02/16/2021, he underwent ER CP with stent placement with removal of sludge and purulent fluid from the common bile duct and also a laparoscopic cholecystectomy with drain placement for gangrenous cholecystitis. The patient did we ll and was felt stable for discharge home the following day, to be followed in the surgical clinic an d GI clinic. Job ID: [id number]
== END 2021-02-17 12:57 | disposition home or self-care (01) | DRG 417 ==
LOC: ED 18:09 → 3W 21:27
DX: K21.9 Gastro-esophageal reflux disease without esophagitis; K80.00 Calculus of gallbladder with acute cholecystitis without obstruction; R17 Unspecified jaundice; I45.10 Unspecified right bundle-branch block; K83.09 Other cholangitis; K83.1 Obstruction of bile duct; Z99.81 Dependence on supplemental oxygen; F17.220 Nicotine dependence, chewing tobacco, uncomplicated; R73.03 Prediabetes; Z82.49 Family history of ischemic heart disease and other diseases of the circulatory system